=== PATIENT | female | born 1935 | race Caucasian/White ===

== ENCOUNTER → 2023-08-08 09:00 | Outpatient (REF) | payer MEDICARE, OTHER, SELFPAY ==
[2023-08-08 12:02] LABS: % Basophils 1.2 % (0-2); % Immature Granulocytes 0.6 % (0-0.5); % Lymphocytes 27.8 % (20.5-51.1); % Monocytes 7.5 % (1.7-9.3); % Neutrophils 57.9 % (42.2-75.2); Absolute Basophils 0.1 10^3/uL (0-0.2); Absolute Eosinophils 0.3 10^3/uL (0-0.7); Absolute Lymphocytes 1.5 10^3/uL (1.2-3.4); Absolute Monocytes 0.4 10^3/uL (0.1-0.6); Hematocrit 40.9 % (37.0-47.0); Hemoglobin 13.9 g/dL (12.0-16.0); Mean Corpuscular Hgb 32.8 pg (27.0-31.0); Mean Corpuscular Volume 96.5 fL (81.0-99.0); Mean Platelet Volume 10.5 fL (7.4-10.4); Nucleated Red Blood Cells % 0 %; Platelet Count 194 10^3/uL (130-400); Red Blood Cell Count 4.24 10^6/uL (4.20-5.40); Red Cell Dist. Width 12.5 % (11.5-14.5); White Blood Cell Count 5.2 10^3/uL (4.8-10.8)
[2023-08-08 12:19] LABS: ALT (SGPT) 18 U/L (0-35); AST (SGOT) 24 U/L (14-36); Albumin 3.6 g/dl (3.5-5.0); Alkaline Phosphatase 84 U/L (38-126); Blood Urea Nitrogen 22 mg/dl (7-17); Calcium 9.2 mg/dl (8.4-10.2); Carbon Dioxide 31 mmol/L (22-30); Chloride 101 mmol/L (98-107); Glucose 111 mg/dl (70-99); Potassium 4.3 mmol/L (3.5-5.1); Sodium 137 mmol/L (135-145); Total Bilirubin 0.9 mg/dl (0.2-1.3); eGFR > 60.00
[2023-08-08 12:31] LABS: Free T3 3.02 pg/ml (2.77-5.27); Free T4 1.54 ng/dl (0.78-2.19)
[2023-08-08 12:45] LABS: TSH 1.23 uIU/ml (0.47-4.68)
== END ==
LOC: HWLAB 09:00
PROVIDERS: ATTENDING PHYSICIAN Internal Medicine
DX: E03.9 Hypothyroidism, unspecified (principal); I10 Essential (primary) hypertension; E78.5 Hyperlipidemia, unspecified; R68.89 Other general symptoms and signs
CPT/HCPCS: 36415; 80053; 84439; 84443; 84481; 85025

== ENCOUNTER → 2024-02-06 12:37 | Outpatient (REF) | payer MEDICARE, OTHER, SELFPAY ==
[2024-02-06 15:57] LABS: % Basophils 0.8 % (0-2); % Eosinophils 4.1 % (0-6); % Immature Granulocytes 0.3 % (0-0.5); % Lymphocytes 20.1 % (20.5-51.1); % Monocytes 7.5 % (1.7-9.3); % Neutrophils 67.2 % (42.2-75.2); Absolute Basophils 0.1 10^3/uL (0-0.2); Absolute Eosinophils 0.3 10^3/uL (0-0.7); Absolute Lymphocytes 1.4 10^3/uL (1.2-3.4); Absolute Monocytes 0.5 10^3/uL (0.1-0.6); Absolute Neutrophils 4.8 10^3/uL (1.4-6.5); Hematocrit 39.8 % (37.0-47.0); Hemoglobin 13.8 g/dL (12.0-16.0); Mean Corp Hgb Conc. 34.7 g/dL (33.0-37.0); Mean Corpuscular Hgb 32.6 pg (27.0-31.0); Mean Corpuscular Volume 94.1 fL (81.0-99.0); Nucleated Red Blood Cells % 0 %; Platelet Count 205 10^3/uL (130-400); Red Blood Cell Count 4.23 10^6/uL (4.20-5.40); Red Cell Dist. Width 12.3 % (11.5-14.5); White Blood Cell Count 7.1 10^3/uL (4.8-10.8)
[2024-02-06 16:01] LABS: Blood Urea Nitrogen 16 mg/dl (7-17); Calcium 9.5 mg/dl (8.4-10.2); Carbon Dioxide 29 mmol/L (22-30); Chloride 101 mmol/L (98-107); Glucose 100 mg/dl (70-99); Potassium 4.4 mmol/L (3.5-5.1); Sodium 139 mmol/L (135-145); eGFR > 60.00
[2024-02-06 16:18] LABS: Free T3 2.83 pg/ml (2.77-5.27); Free T4 1.57 ng/dl (0.78-2.19)
[2024-02-06 16:32] LABS: TSH 0.83 uIU/ml (0.47-4.68)
[2024-02-06 17:08] LABS: Folate > 20.0 ng/ml (2.76-20); Vitamin B12 315 pg/ml (239-931)
[2024-02-07 09:27] LABS: Glycohemoglobin (HgbA1c) 5.2 % (4.0-5.6)
== END ==
LOC: HWLAB 12:37
PROVIDERS: ATTENDING PHYSICIAN Internal Medicine
DX: R23.3 Spontaneous ecchymoses (principal); E03.9 Hypothyroidism, unspecified; I10 Essential (primary) hypertension; R73.01 Impaired fasting glucose; R60.0 Localized edema; R68.89 Other general symptoms and signs; J44.9 Chronic obstructive pulmonary disease, unspecified; R41.3 Other amnesia
CPT/HCPCS: 36415; 80048; 82607; 82746; 83036; 84439; 84443; 84481; 85025

== ENCOUNTER → 2024-02-07 15:12 | Outpatient (REF) | payer MEDICARE, OTHER, SELFPAY | LOC: RAD 15:12 | PROVIDERS: ATTENDING PHYSICIAN Internal Medicine | DX: R23.3 Spontaneous ecchymoses (principal); R60.0 Localized edema | CPT/HCPCS: 93971 ==

== ENCOUNTER → 2024-04-22 16:09 | Outpatient (REF) | payer MEDICARE, OTHER, SELFPAY | LOC: HWRAD 16:09 | PROVIDERS: ATTENDING PHYSICIAN Internal Medicine | DX: R60.9 Edema, unspecified (principal); R20.0 Anesthesia of skin; E03.9 Hypothyroidism, unspecified | CPT/HCPCS: 71046; 72050 ==

== ENCOUNTER → 2024-04-23 08:39 | Outpatient (REF) | payer MEDICARE, OTHER, SELFPAY ==
[2024-04-23 10:03] LABS: % Basophils 0.8 % (0-2); % Immature Granulocytes 0.2 % (0-0.5); % Lymphocytes 27.2 % (20.5-51.1); % Neutrophils 59.8 % (42.2-75.2); Absolute Eosinophils 0.2 10^3/uL (0-0.7); Absolute Lymphocytes 1.4 10^3/uL (1.2-3.4); Absolute Monocytes 0.4 10^3/uL (0.1-0.6); Absolute Neutrophils 3.2 10^3/uL (1.4-6.5); Hematocrit 42.9 % (37.0-47.0); Hemoglobin 14.7 g/dL (12.0-16.0); Mean Corp Hgb Conc. 34.3 g/dL (33.0-37.0); Mean Corpuscular Hgb 33.5 pg (27.0-31.0); Mean Corpuscular Volume 97.7 fL (81.0-99.0); Mean Platelet Volume 11.3 fL (7.4-10.4); Nucleated Red Blood Cells % 0 %; Platelet Count 154 10^3/uL (130-400); Red Blood Cell Count 4.39 10^6/uL (4.20-5.40); Red Cell Dist. Width 12.7 % (11.5-14.5); White Blood Cell Count 5.3 10^3/uL (4.8-10.8)
[2024-04-23 10:27] LABS: ALT (SGPT) 47 U/L (0-35); AST (SGOT) 30 U/L (14-36); Albumin 3.8 g/dl (3.5-5.0); Alkaline Phosphatase 82 U/L (38-126); Blood Urea Nitrogen 15 mg/dl (7-17); Calcium 9.2 mg/dl (8.4-10.2); Carbon Dioxide 30 mmol/L (22-30); Chloride 101 mmol/L (98-107); Glucose 100 mg/dl (70-99); HDL Cholesterol 100 mg/dl; LDL Cholesterol, Calculated 71 mg/dl; Potassium 4.6 mmol/L (3.5-5.1); Sodium 139 mmol/L (135-145); Total Bilirubin 0.8 mg/dl (0.2-1.3); Total Cholesterol 183 mg/dl (50-199); Total Protein 6.3 g/dl (6.3-8.2); Triglyceride 64 mg/dl (10-149); Very Low Density Lipoprotein 12 mg/dl (0-30); eGFR > 60.00
[2024-04-23 10:52] LABS: Free T3 3.07 pg/ml (2.77-5.27); Free T4 1.36 ng/dl (0.78-2.19)
[2024-04-23 11:09] LABS: TSH 2.11 uIU/ml (0.47-4.68)
[2024-04-23 11:42] LABS: Folate > 20.0 ng/ml (2.76-20); Vitamin B12 400 pg/ml (239-931)
== END ==
LOC: HWLAB 08:39
PROVIDERS: ATTENDING PHYSICIAN Internal Medicine
DX: I10 Essential (primary) hypertension (principal); E78.5 Hyperlipidemia, unspecified; E03.9 Hypothyroidism, unspecified; R60.9 Edema, unspecified; R20.0 Anesthesia of skin
CPT/HCPCS: 36415; 80053; 80061; 82607; 82746; 84439; 84443; 84481; 85025

== ENCOUNTER → 2024-05-07 13:30 | Outpatient (REF) | payer MEDICARE, OTHER, SELFPAY | LOC: HWRCS 13:30 | PROVIDERS: ATTENDING PHYSICIAN Internal Medicine | DX: I10 Essential (primary) hypertension (principal); R60.9 Edema, unspecified; R20.0 Anesthesia of skin | CPT/HCPCS: 93306 ==

== ENCOUNTER 2024-07-01 15:14 | Inpatient (IN) | payer MEDICARE, OTHER, SELFPAY ==
[2024-07-01] VITALS (22 sets, daily range): BP systolic 71–161; BP diastolic 55–96; BMI 23.3
[2024-07-01 10:37] LABS: % Basophils 0.8 % (0-2); % Eosinophils 2.3 % (0-6); % Immature Granulocytes 0.5 % (0-0.5); % Lymphocytes 14.2 % (20.5-51.1); % Monocytes 5.8 % (1.7-9.3); % Neutrophils 76.4 % (42.2-75.2); Absolute Basophils 0.1 10^3/uL (0-0.2); Absolute Eosinophils 0.2 10^3/uL (0-0.7); Absolute Lymphocytes 1.1 10^3/uL (1.2-3.4); Absolute Monocytes 0.5 10^3/uL (0.1-0.6); Absolute Neutrophils 6.1 10^3/uL (1.4-6.5); Hematocrit 40.3 % (37.0-47.0); Hemoglobin 13.8 g/dL (12.0-16.0); Mean Corp Hgb Conc. 34.2 g/dL (33.0-37.0); Mean Corpuscular Hgb 32.6 pg (27.0-31.0); Mean Corpuscular Volume 95.3 fL (81.0-99.0); Mean Platelet Volume 10.3 fL (7.4-10.4); Nucleated Red Blood Cells % 0 %; Platelet Count 219 10^3/uL (130-400); Red Blood Cell Count 4.23 10^6/uL (4.20-5.40); White Blood Cell Count 7.9 10^3/uL (4.8-10.8)
--- NOTE | 2024-07-01 10:47 | ED.GENMED ---
History of Present Illness
General
Chief Complaint: Rectal Bleeding
Time Seen by Provider: 07/01/24 10:41
History of Present Illness
History of Present Illness:
Patient is a 89-year-old woman with history of prior GI bleeding secondary to diverticulosis presenting to the emergency department with GI bleed. Patient states that at 5 AM this morning she woke up with diarrhea and bright red bleeding with
clots. She does note that she is been generally weak. She has not been lightheaded dizzy. She has not passed out. She is not on a blood thinner. She does state that she has had 7 episodes of this. No recent travel. No antibiotics. Her last
colonoscopy was 4 years ago. Per chart review it appears the patient was admitted in November 2021 for lower GI bleeding likely from diverticular bleed. At that time they monitor her hemoglobin which was stable and she was discharged with outpatient
follow-up.
Past History
Past History
ED Past Medical History: COPD and Hypothyroidism (half of thyroid removed)
ED Past Surgical History: Cholecystectomy, Gynecological and Other (Partial thyroidectomy)
Patient has exhibited threatening behavior?: No
Social History
Tobacco: Former smoker
Personal:
Living: with family
Employment: Employed
Family History
Family History: Negative Early CAD
Phy Exam
Physical Exam
Physical Exam:
GENERAL: in no acute distress
HEENT: normocephalic, extraocular movements intact, moist oral mucosa
NECK: normal inspection
RESPIRATORY: no respiratory distress, clear to auscultation bilaterally
CARDIOVASCULAR: regular rate and rhythm
ABDOMEN/: soft, non-distended, non-tender to palpation, no rebound or guarding
EXTREMITIES: non-tender, no edema/swelling
NEUROLOGIC: awake and alert, moves all extremities
SKIN: warm
Course
Orders/Labs/Results
Orders:
Orders
07/01/24 10:27
Type+Screen Urgent
Complete Blood Count/With Diff Urgent
Comprehensive Metabolic Panel Urgent
PTT Urgent
Prothrombin Time Urgent
07/01/24 10:57
CT Abd/pelvis Angio W/wo Iv Urgent
Comment:
Reason For Exam: lower GI bleeding, clots, weak
07/01/24 11:01
Stool Culture Urgent
LIZ Source: Feces/Stool
Specimen Description:
Date Specimen was Collected: 07/01/24
Time Specimen was Collected: 14:38
07/01/24 14:32
H&H Urgent
Abnormal Lab Results
07/01/24
10:27
MCH 32.6 H pg
(27.0-31.0)
Absolute Lymphs (auto) 1.1 L 10^3/uL
(1.2-3.4)
Neutrophils % 76.4 H %
(42.2-75.2)
Lymphocytes % 14.2 L %
(20.5-51.1)
Glucose 153 H mg/dl
(70-99)
07/01/24 10:27
Vital Signs
Initial and Last Documented VS:
Initial Vital Signs
Temp Pulse Resp BP Pulse Ox
97.5 F 68 18 141/77 98
07/01/24 10:15 07/01/24 10:15 07/01/24 10:15 07/01/24 10:15 07/01/24 10:15
Last Documented Vital Signs
Temp Pulse Resp BP Pulse Ox
97.5 F 73 13 132/65 94
07/01/24 10:15 07/01/24 14:30 07/01/24 14:30 07/01/24 14:00 07/01/24 14:00
MDM/Problems Addressed
Differential Diagnosis Includes:
89-year-old woman presenting to the emergency department with concern for GI bleeding. Concern for lower GI bleed given that is bright red with clots. Given the diarrhea could be diverticulitis versus AVM or polyp. Consider mesenteric ischemia
though less likely. Will check blood work. Given the amount of bleeding and change in blood pressure will obtain CTA. Will also check stool cultures given the diarrhea. Patient will need admission.
*Critical Care Note
Total Time (30-74mins, 75-104mins- exclusive of procedures): 35
comment:
Critical care statement: A total of 35 minutes of critical care time was provided for this patient. This includes management of unstable vital signs, evaluation of the patient at bedside, reviewing the patient's pertinent medical records, ordering
and reviewing studies, arranging urgent treatment with development of a management plan, evaluating patient's response to treatment, frequent reassessment, and discussion with consultants. This time was separate from time utilized to perform the
aforementioned documented procedures.
Update Note
Update Note:
Hemoglobin is stable.
On reevaluation patient is resting comfortably. She did go to the bathroom and did have some bleeding still.
I did receive a critical from radiology. Patient does have active GI bleed. Discussed with hospitalist as well as GI who recommended interventional radiology consult. Discussed with interventional radiology who is aware. Will admit to the
hospitalist service pending plan from IR
ED Attending Note
-
Portions of this chart may have been created with voice recognition software.� Occasional wrong word or��sound alike� substitutions may have occurred due to the inherent limitations of voice recognition software.
Discharge Plan
Departure
Patient Disposition: Admit
Date of Disposition: 07/01/24
Time of Disposition: 14:51
Presentation/result/management discussed w/ accepting MD/DO: Hospitalist
Discharge Problem:
Acute GI bleeding
Prescriptions:
No Action
levothyroxine [Synthroid] 88 MCG tablet
88 mcg PO DAILY
ascorbic acid (vitamin C) [Vitamin C] 500 MG tablet
1,000 mg PO DAILY
trazodone 50 mg Tablet
50 mg PO HS
therapeutic multivitamin Tablet
1 tab PO DAILY
amlodipine [Norvasc] 2.5 mg Tablet
2.5 mg PO DAILY
propranolol 20 mg Tablet
20 mg PO DAILY
cholecalciferol (vitamin D3) [Vitamin D3] 25 mcg (1,000 unit) Capsule
50 mcg PO DAILY
omega 5-lgr-vja-fish oil [Fish Oil] 300-1,000 mg Capsule
1 cap PO DAILY
ipratropium bromide 42 mcg (0.06 %) Stanton,Non-Aerosol
1 spray INTRANASAL TID PRN (Reason: congestion)
albuterol sulfate 90 mcg/actuation Hfa Aerosol Inhaler
90 mcg INHALATION DAILY PRN (Reason: sob)
Rx Instructions:
2 puffs
polyethylene glycol 3350 [Miralax] 17 gram/dose Powder
4 g PO DAILY PRN (Reason: constipation)
propranolol 20 mg Tablet
10 mg PO QPM
Metamucil 3.4 gram/5.4 gram Powder
1 tbsp PO DAILY
Trelegy Ellipta 200-62.5-25 mcg Blister With Device
1 inh INHALATION DAILY
Referrals:
Fanta Beltran MD [Family Provider] -
Interventions
Interventions:
*Risk Screen - Suicide Last Done: 07/01/24 11:15
*General Assessment Last Done: 07/01/24 11:15
*Neglect/Abuse Screening Last Done: 07/01/24 11:15
ED- Fall Risk Assessment Last Done: 07/01/24 11:15
*ED COVID-19 Vaccine History Last Done: 07/01/24 11:15
DQ-Twqhlu-Neowjvkftl Assessment Last Done: 07/01/24 11:15
ED- Cardiac Assessment Last Done: 07/01/24 11:15
ED- Pulmonary Assessment Last Done: 07/01/24 11:15
Discharge Date and Time
Print Language: ESTONIAN
[2024-07-01 10:54] LABS: INR 0.96; PT 13.1 Sec (11.4-14.6)
[2024-07-01 10:55] LABS: APTT 30.3 Sec (23.4-35.0)
[2024-07-01 10:59] LABS: ALT (SGPT) 20 U/L (0-35); AST (SGOT) 23 U/L (14-36); Albumin 3.8 g/dl (3.5-5.0); Alkaline Phosphatase 89 U/L (38-126); Blood Urea Nitrogen 15 mg/dl (7-17); Calcium 8.4 mg/dl (8.4-10.2); Carbon Dioxide 28 mmol/L (22-30); Chloride 102 mmol/L (98-107); Glucose 153 mg/dl (70-99); Potassium 4.4 mmol/L (3.5-5.1); Sodium 136 mmol/L (135-145); Total Bilirubin 0.7 mg/dl (0.2-1.3); Total Protein 6.4 g/dl (6.3-8.2); eGFR > 60.00
--- NOTE | 2024-07-01 10:59 | EDRN ---
Dr. Lauren in to see pt.
--- NOTE | 2024-07-01 14:35 | EDRN ---
Wilmer Berry PA in to see pt at this time.
--- NOTE | 2024-07-01 15:12 | HPS.HSE ---
Addendum entered and electronically signed by Dorinda Merino DO 07/01/24 16:23:
The patient is seen and examined in the ED. I have discussed the patient with YANG Mcclendon, ED physician, GI physician, and IR physician
She has had 7 episodes of bloody diarrhea today, and is having BRB per rectum in ED , no abdominal pain, no etoh, no NSAIDS, she has prior history of diverticular bleed
CTA a/p showing active bleeding in the distal descending colon
VSS, AF at this time
Abd soft, nt/nd
CV RRR, no m/r/g
Lungs CTA b/l
#Acute Lower GI bleed,concern for acute diverticular bleed
-she is going to lab with IR for procedure (from ED)
-[facility] admission, IVF, 2 large bore IVs, blood consent
-serial monitoring of H & H
-GI cx/IR cx
-agree with POC per below and as per clinical course following IR procedure
DNR
Original Note:
Family Physician
-
Family Physician: Fanta Beltran
Chief Complaint
-
Rectal Bleeding
History of Present Illness
Patient is an 89-year-old female past medical history of COPD, hypertension, migraine headaches and prior diverticular bleed who presents with rectal bleeding. Patient reports she started with rectal bleeding around 5 AM this morning. She reports
about 7 episodes at home prior to coming to the emergency department. She describe them as a large amount of blood with some clots. She states her last episode of rectal bleeding was just before my evaluation. She denies abdominal pain.
Medical History
Past Medical History
Past Medical History: Reports Other
Additional Past Medical History:
COPD
Essential Hypertension
Hypothyroidism
Migraine Headaches
Insomnia
Diverticular Disease with prior diverticular bleed
Past Surgical History: Reports Other
Additional Past Surgical History:
Partial Thyroidectomy
Open Cholecystectomy
OLIVIA/BSO
Left Inguinal Hernia Repair with Mesh
Right Total Knee Replacement
Social History
Tobacco: Smoker (Quit over 30 years ago)
Alcohol: Daily (One glass of wine nightly)
Personal:
Living: With Family
Family History
Family History: Not pertinent
Allergies / Home Medications
Allergies reflects when Allergies were last updated in [facility].
Home Medications with original date entered in [facility]
Allergy/Medication List:
Allergies
Allergy/AdvReac Type Severity Reaction Status Date / Time
Shellfish *RETIRED-02/14/12 Allergy Nausea / Verified 07/01/24 10:15
[Shellfish] Vomiting;headache
Sulfa (Sulfonamide Allergy Nausea / Verified 07/01/24 10:15
Antibiotics) Vomiting/heADache
Home Medications
ascorbic acid (vitamin C) 500 mg tablet (Vitamin C) 1,000 mg PO DAILY Supplement 11/03/10
levothyroxine 88 mcg tablet (Synthroid) 88 mcg PO DAILY Thyroid 11/03/10
amlodipine 2.5 mg tablet (Norvasc) 2.5 mg PO DAILY Blood pressure 12/20/21
cholecalciferol (vitamin D3) 25 mcg (1,000 unit) capsule (Vitamin D3) 50 mcg PO DAILY Supplement 12/20/21
omega 4-cph-heb-fish oil 300 mg-1,000 mg capsule (Fish Oil) 1 cap PO DAILY Supplement 12/20/21
propranolol 20 mg tablet 20 mg PO DAILY Blood pressure 12/20/21
therapeutic multivitamin 1 tab PO DAILY Supplement 12/20/21
trazodone 50 mg tablet 50 mg PO HS 12/20/21
ipratropium bromide 42 mcg (0.06 %) nasal spray 1 spray intranasal TID PRN congestion 02/28/22
albuterol sulfate 90 mcg/actuation aerosol inhaler 90 mcg inhalation DAILY PRN sob 03/03/22
fluticasone fur. 200 mcg-umeclid 62.5 mcg-vilant 25 mcg inhalat.powder (Trelegy Ellipta) 1 inh inhalation DAILY 07/01/24
polyethylene glycol 3350 17 gram/dose oral powder (Miralax) 4 g PO DAILY PRN constipation 07/01/24
propranolol 20 mg tablet 10 mg PO QPM 07/01/24
psyllium husk 3.4 gram/5.4 gram oral powder (Metamucil) 1 tbsp PO DAILY 07/01/24
Review of Systems
-
A 12 point ROS was completed and negative except as noted: Yes
Constitutional: Denies Fever or Chills
Respiratory: Denies Cough or Trouble Breathing
Cardiac: Denies Chest Pain or Palpitations
Abdomen/GI: Reports Diarrhea; Denies Abdominal Pain, Nausea or Vomiting
Physical Exam
Vital Signs
Vital Signs
Temp Pulse Resp BP Pulse Ox
97.5 F 72 20 149/66 97
07/01/24 10:15 07/01/24 15:00 07/01/24 15:00 07/01/24 15:00 07/01/24 15:00
Physical Exam
General: Comfortable and Conversant
HEENT: Anicteric and Moist mucous membranes
Respiratory: Clear and Non Labored Respirations
Cardiac: S1/S2 and Regular Rhythm
GI: Soft and Non Tender
Rectal: Other (Red blood)
Musculoskeletal: No Clubbing, No Cyanosis and No Edema
Skin: Warm and Dry
Neuro: Awake, Alert, Oriented and Nonfocal/grossly intact
Psych: Calm
Laboratory Results
-
07/01/24 10:27
Laboratory Results
PT 13.1 Sec (11.4-14.6) 07/01/24 10:27
INR 0.96 07/01/24 10:27
APTT 30.3 Sec (23.4-35.0) 07/01/24 10:27
Total Bilirubin 0.7 mg/dl (0.2-1.3) 07/01/24 10:27
AST 23 U/L (14-36) 07/01/24 10:27
ALT 20 U/L (0-35) 07/01/24 10:27
Alkaline Phosphatase 89 U/L (38-126) 07/01/24 10:27
Data Reviewed
-
CT Scan: Report Reviewed by me
Lab Data: Labs Reviewed by me
Old Records: Reviewed
Impression/Plan
-
Lower GI BLeed, likely diverticular in nature
-CT scan positive for active bleeding is descending colon
-Consult IR for possible embolization
-Consult GI
-Continue NPO/IVFs
-Monitor serial Hgb
-Blood consent obtained and scanned into chart
Essential Hypertension
-Hold amlodipine in setting of active bleed
COPD, no acute exacerbation
-Continue Trelegy
Hypothyroidism
-Continue levothyroxine
Migraine Headaches
-Continue propranolol for prophylaxis
Insomnia
-Continue trazodone
DVT proph: SCDs
Code Status: DNR
--- NOTE | 2024-07-01 15:15 | EDRN ---
[facility] was consulted for embolization of area of bleed in colon and Pt went to [facility] at this time for that.
[2024-07-01 15:22] LABS: Hematocrit 36.5 % (37.0-47.0)
--- NOTE | 2024-07-01 17:13 | W.PN.[facility].PR ---
Procedure Note
-
Post inferior and superior mesenteric arteriography. No active gastrointestinal hemorrhage identified. 5 Fr Mynx closure device deployed at right CF arteriotomy site. No immediate complications.
--- NOTE | 2024-07-01 17:30 | EDRN ---
Pt just returned from [facility] at this time. Pt had no embolization as no bleeding noted to embolize, Pt was accessed through R groin (Bandaid CDI), Pt received 1 of versed and 50 of Fentanyl
--- NOTE | 2024-07-01 17:31 | EDRN ---
Rubi Blair ASSET LIABILITY ANALYST w/ GI in room w/ pt. Pt has not had BM since this am and no bloody rectal drainage but one tiny clot.
--- NOTE | 2024-07-01 17:38 | CON.GI ---
Addendum entered and electronically signed by Evelyn Piedra DO 07/01/24 19:24:
Patient seen and examined independently of LOLA. I agree with her note with my additions below.
Kadi is an 89-year-old female with history of COPD, partial thyroidectomy, spigelian hernia repair, prior diverticular bleed in 2021 who comes in with multiple episodes of painless hematochezia who is otherwise hemodynamically stable. Patient
went for CT angio showing a distal descending bleed who then went to IR and had a negative angiogram. Patient states no other GI symptoms and are baseline constipation is well-controlled with fiber MiraLAX and magnesium citrate tablets.
In the emergency room she is hemodynamically stable with a pulse of 71 on propranolol, normotensive, hemoglobin 13 x 2.
# Descending diverticular bleed based on positive CT angio
--Patient is hemodynamically stable with no further bleeding
--Negative IR angiogram
--Clear liquids
--Monitor hemoglobin and clinical status, 2 large bore IVs
Original Note:
Consultation
-
Date/Time Consultation Requested: 07/01/24 1430
Date/Time Consultation Performed: 07/01/24 1730
Requesting Provider: Gene Lauren MD
Performing Provider: LOLA Velasco, Evelyn Piedra DO
Reason for Consultation: rectal bleeding
Medical History
Chief Complaint / HPI
Chief Complaint: Rectal bleeding
History of Present Illness:
Pt is a 89yo presents with hx COPD, diverticulosis, hypothyroidism , Partial thyroidectomy, Spigelian hernia repair Dr. Floyd 2021, prior diverticular bleed in 2021, Partial thyroidectomy, Spigelian hernia repair Dr. Floyd 2021 with onset of
multiple episodes of bright red blood per rectum. After admission CTA + with bleeding in distal descending colon then neg IR angio. In review with patient prior bleeding in 2021 and hx constipation that has been well controlled with fiber,
miralax and mag citrate tablet.
Pt otherwise denies dysphagia, GERD, nausea, vomiting, abdominal pain, diarrhea, or black stools. Her last colonoscopy was 05/2019 with 2-- 4 mm polyps splenic flexure, transverse and diverticulosis. BX TA and hyperplastic.
Past Medical History
Past Medical History: COPD, GERD, Hypothyroidism and Other (Constipation, colon polyps, diverticulosis, prior diverticular bleed 2021, TA polyps)
Past Surgical History: Cholecystectomy, Gynecological (Hysterectomy) and Other (Partial thyroidectomy, Spigelian hernia repair Dr. Floyd 2021 )
Social History
Tobacco: Former Smoker
Alcohol: Daily
Drug: None
Personal:
Living: With Family
Employment: Retired
Family History
Family History: Other (mother with stomach CA)
Allergies / Home Medications
Allergy/AdvReac Type Severity Reaction Status Date / Time
Shellfish *RETIRED-02/14/12 Allergy Nausea / Verified 07/01/24 10:15
[Shellfish] Vomiting;headache
Sulfa (Sulfonamide Allergy Nausea / Verified 07/01/24 10:15
Antibiotics) Vomiting/heADache
�Medication �Instructions �Recorded
ascorbic acid (vitamin C) 500 mg 1,000 mg PO DAILY Supplement 11/03/10
tablet (Vitamin C)
levothyroxine 88 mcg tablet 88 mcg PO DAILY Thyroid 11/03/10
(Synthroid)
amlodipine 2.5 mg tablet (Norvasc) 2.5 mg PO DAILY Blood pressure 12/20/21
cholecalciferol (vitamin D3) 25 50 mcg PO DAILY Supplement 12/20/21
mcg (1,000 unit) capsule (Vitamin
D3)
omega 9-zkc-mmu-fish oil 300 1 cap PO DAILY Supplement 12/20/21
mg-1,000 mg capsule (Fish Oil)
propranolol 20 mg tablet 20 mg PO DAILY Blood pressure 12/20/21
therapeutic multivitamin 1 tab PO DAILY Supplement 12/20/21
trazodone 50 mg tablet 50 mg PO HS 12/20/21
ipratropium bromide 42 mcg (0.06 1 spray intranasal TID PRN 10/03/22
%) nasal spray congestion
albuterol sulfate 90 mcg/actuation 90 mcg inhalation DAILY PRN sob 03/03/22
aerosol inhaler
fluticasone fur. 200 mcg-umeclid 1 inh inhalation DAILY 07/01/24
62.5 mcg-vilant 25 mcg
inhalat.powder (Trelegy Ellipta)
polyethylene glycol 3350 17 4 g PO DAILY PRN constipation 07/01/24
gram/dose oral powder (Miralax)
propranolol 20 mg tablet 10 mg PO QPM 07/01/24
psyllium husk 3.4 gram/5.4 gram 1 tbsp PO DAILY 07/01/24
oral powder (Metamucil)
Review of Systems
-
History Source: Patient
Constitutional: Reports No Symptoms
EENT: Reports No Symptoms
Respiratory: Reports No Symptoms
Cardiac: Reports No Symptoms
Abdomen/GI: Reports Constipated (chronic but stable with laxative use ) and Bloody Stools
: Reports No Symptoms
Musculoskeletal: Reports No Symptoms
Skin: Reports No Symptoms
Neurological: Reports Dizzy
Endocrine: Reports No Symptoms
Hematologic/Lymphatic: Reports Bleeding
Vital Signs
Temp Pulse Resp BP Pulse Ox
98.2 F 65 17 138/59 94
07/01/24 17:15 07/01/24 17:30 07/01/24 17:30 07/01/24 17:30 07/01/24 17:30
Physical Exam
Exam
General: Well Developed, Well Nourished and No Apparent Distress
HEENT: Normocephalic and Anicteric
Respiratory: Clear
Cardiac: Regular Rhythm
GI: Soft, Non Tender and Non Distended
Genito-urinary: No Costovertebral Tender
Musculoskeletal: No Clubbing and No Cyanosis
Skin: Warm and Dry
Neuro: Awake, Alert and AO x 3
Psych: Calm
Results
WBC 7.9 10^3/uL (4.8-10.8) 07/01/24 10:27
Hgb 13.0 g/dL (12.0-16.0) 07/01/24 15:09
Hct 36.5 % (37.0-47.0) L 07/01/24 15:09
MCV 95.3 fL (81.0-99.0) 07/01/24 10:27
Plt Count 219 10^3/uL (130-400) 07/01/24 10:27
Absolute Neuts (auto) 6.1 10^3/uL (1.4-6.5) 07/01/24 10:
PT 13.1 Sec (11.4-14.6) 07/01/24 10:
INR 0.96 07/01/24 10:
APTT 30.3 Sec (23.4-35.0) 07/01/24 10:27
Sodium 136 mmol/L (135-145) 07/01/24 10:27
Potassium 4.4 mmol/L (3.5-5.1) 07/01/24 10:
Chloride 102 mmol/L (98-107) 07/01/24 10:27
Carbon Dioxide 28 mmol/L (22-30) 07/01/24 10:27
BUN 15 mg/dl (7-17) 07/01/24 10:
Creatinine 0.6 mg/dL (0.6-1.0) 07/01/24 10:27
Calcium 8.4 mg/dl (8.4-10.2) 07/01/24 10:27
Total Bilirubin 0.7 mg/dl (0.2-1.3) 07/01/24 10:
AST 23 U/L (14-36) 07/01/24 10:
ALT 20 U/L (0-35) 07/01/24 10:27
Alkaline Phosphatase 89 U/L (38-126) 07/01/24 10:
Diagnostic Image Results:
07/01/24 CT Abd/pelvis Angio W/wo Iv
Examination is positive for GI bleeding involving the distal descending colon.
See above narrative for additional findings.
Prior GI Procedures:
Colonoscopy: 05/2019 with 2-- 4 mm polyps splenic flexure, transverse and diverticulosis. BX TA and hyperplastic.
Assessment / Plan
-
Pt is a 89yo presents with hx COPD, diverticulosis, hypothyroidism, Partial thyroidectomy, Spigelian hernia repair Dr. Floyd 2021, prior diverticular bleed in 2021, Partial thyroidectomy, Spigelian hernia repair Dr. Floyd 2021 with onset of
multiple episodes of bright red blood per rectum. After admission CTA + with bleeding in distal descending colon then neg IR angio. In review with patient prior bleeding in 2021 and hx constipation that has been well controlled with fiber,
Miralax and mag citrate tablet.
-rectal bleeding with concern for diverticular bleed
-CTA + bleeding distal descending
-hx diverticular bleed 2021
-constipation with laxative use
other med problems:
-colon polyp
-COPD
-diverticulosis
-hypothyroidism/partial thyroidectomy
-Spigelian hernia repair Dr. Floyd 2021
PLAN:
Etiology of bleeding related to diverticular source vs other
s/p CTA + distal descending colon bleed then neg angio
trend stool record and hbg
ok for sips clears
if recurrent bleeding consider colonoscopy vs repeat angio
when resolved continued laxative regiment to prevent constipation
-
-
Thank you for consultation and allowing me to participate in the patient's care. Please call the lieutenant colonel GI physician during the after hours with any questions or concerns.
--- NOTE | 2024-07-01 17:57 | EDRN ---
SBP low and rechecked at this time. SBP now 119.
--- NOTE | 2024-07-01 18:29 | EDRN ---
Admission orders processed at this time.
--- NOTE | 2024-07-01 18:33 | EDRN ---
Pt asking to drink or ice chips but NPO and informed of this. Pt administered oral swab in cup of water to wet her mouth.
[2024-07-01] MEDS: SYMBICORT 160/4.5 MCG INHALER INH (19:32)
[2024-07-01] MEDS: INDERAL 10 MG PO (19:55)
[2024-07-01] MEDS: NSS 1000 IV (20:00)
[2024-07-01 20:58] LABS: Hematocrit 35.7 % (37.0-47.0); Hemoglobin 12.2 g/dL (12.0-16.0)
[2024-07-01] MEDS: DESYREL 50 MG PO (23:08)
[2024-07-02] VITALS (14 sets, daily range): BP systolic 103–141; BP diastolic 39–76
[2024-07-02 02:46] LABS: Hematocrit 33.1 % (37.0-47.0); Hemoglobin 11.5 g/dL (12.0-16.0)
[2024-07-02] MEDS: SYNTHROID 88 MCG PO (06:40)
--- NOTE | 2024-07-02 06:55 | W.PN.GI.CBS2 ---
Today's Communication / Plan
-
Please see assessment and plan for details.
Assessment / Plan
-
1. GI bleed with positive CT scan : In the distal descending, likely diverticular, with negative angiogram in IR. She has been stable overnight, with no significant bowel movements and has been hemodynamically stable. At this point we will
continue clear liquids, continue observation today. If is remaining stable then likely advance diet and probable DC tomorrow. If significant recurrent bleeding then would repeat angiogram in IR.
Subjective
Subjective
Date of Service: July 02, 2024
Patient doing okay, no bowel movements overnight, no abdominal pain, nausea or vomiting. No chest pain or shortness of breath.
Objective
Data Reviewed
Laboratory Data:
Laboratory Results
07/01/24 10:27
Laboratory Results
PT 13.1 Sec (11.4-14.6) 07/01/24 10:27
INR 0.96 07/01/24 10:27
APTT 30.3 Sec (23.4-35.0) 07/01/24 10:27
Total Bilirubin 0.7 mg/dl (0.2-1.3) 07/01/24 10:27
AST 23 U/L (14-36) 07/01/24 10:27
ALT 20 U/L (0-35) 07/01/24 10:27
Alkaline Phosphatase 89 U/L (38-126) 07/01/24 10:27
Vital Signs and I&O:
Vital Signs
Temp Pulse Resp BP Pulse Ox
97.6 F 65 17 103/42 97
07/02/24 06:38 07/02/24 01:15 07/02/24 01:15 07/02/24 01:00 07/01/24 20:00
I&O
06/30/24 07/01/24 07/02/24
06:59 06:59 06:59
Intake Total 75 / 75
Balance
Physical Exam
Physical Exam
General: NAD
Abdomen: normal bowel sounds, soft, no tenderness, no masses or bruits, no ascites
[2024-07-02] MEDS: SYMBICORT 160/4.5 MCG INHALER INH ×2 (07:09→20:24)
[2024-07-02] MEDS: SPIRIVA RESPIMAT 2.5 MCG INH (07:09)
[2024-07-02 07:21] LABS: Hematocrit 32.5 % (37.0-47.0); Hemoglobin 11.1 g/dL (12.0-16.0); Mean Corp Hgb Conc. 34.2 g/dL (33.0-37.0); Mean Corpuscular Hgb 32.7 pg (27.0-31.0); Mean Corpuscular Volume 95.9 fL (81.0-99.0); Mean Platelet Volume 10.2 fL (7.4-10.4); Platelet Count 174 10^3/uL (130-400); Red Blood Cell Count 3.39 10^6/uL (4.20-5.40); Red Cell Dist. Width 12.2 % (11.5-14.5); White Blood Cell Count 6.8 10^3/uL (4.8-10.8)
[2024-07-02] MEDS: INDERAL 20 MG PO (08:26)
[2024-07-02] MEDS: NSS 1000 IV (09:30)
--- NOTE | 2024-07-02 10:28 | W.PN.HOSP.TC ---
Today's Communication/Plan
-
see outlined plan below
Assessment / Plan
Assessment / Plan
Assessment:
Acute lower GI bleed, with acute blood loss anemia
- likely diverticular in origin
- s/p CTA with + GI bleed in descending colon. s/p negative IR angiogram
- GI following
- clears
- monitor Hb and for clinical bleeding
- type/screen/consented
Essential Hypertension
- Hold amlodipine in setting of active bleed; resume in 24 hours
COPD, no acute exacerbation
- continue Trelegy
Hypothyroidism
- continue levothyroxine
Migraine Headaches
- continue propranolol for prophylaxis
Insomnia
- continue trazodone
DVT proph: SCDs due to GI bleed
Code Status: DNR/DNI confirmed with patient
Anticipated Discharge: Within 24 hours
Subjective/Interval History
-
Date of Service: July 02, 2024
denies any new complaints at present
no further bleeding
Hb is 11.1 most recently
Objective Data
-
Labs:
Laboratory Results
07/02/24 07/02/24 07/02/24
02:39 06:36 08:30
WBC 6.8
Hgb 11.5 L 11.1 L Pending
Hct 33.1 L 32.5 L Pending
Plt Count 174 D
Vital Signs:
Vital Signs
Temp Pulse Resp BP Pulse Ox
97.6 F 61 20 138/49 96
07/02/24 06:38 07/02/24 09:31 07/02/24 09:31 07/02/24 09:31 07/02/24 09:31
I&O
07/01/24 07/02/24 07/03/24
06:59 06:59 06:59
Intake Total 75 / 75
Balance 75 /
Physical Exam
-
General: No Apparent Distress
HEENT: Normocephalic and Atraumatic
Respiratory: Negative Wheezes
Cardiac: Regular Rhythm and S1/S2
GI: Soft and Nontender
Genito-urinary: No Costovertebral Tender
Neuro: AO x 3
Hematologic / Lymphatic: No Lymphadenopathy
Psych: Calm
Data Reviewed
-
Total Time Spent with Patient (in minutes): 41
Labs: Labs Reviewed by me
[2024-07-02 12:59] LABS: Hemoglobin 11.3 g/dL (12.0-16.0)
--- NOTE | 2024-07-02 14:50 | TRANSFER ---
Verbal report provided to Edinson Malone. pt awaiting to to be transferred to floor.
[2024-07-02] MEDS: INDERAL 10 MG PO (20:05)
[2024-07-02] MEDS: DESYREL 50 MG PO (21:41)
--- NOTE | 2024-07-03 06:05 | W.PN.GI.CBS2 ---
Today's Communication / Plan
-
Please see assessment and plan for details.
Assessment / Plan
-
1. GI bleed with positive CT scan : In the distal descending, likely diverticular, with negative angiogram in IR. She has been stable for more than 24 hours, with no significant bowel movements and has been hemodynamically stable, as tolerated
diet. At this point will await morning hemoglobin, though if stable is okay to DC from a GI standpoint.
Subjective
Subjective
Date of Service: July 03, 2024
Patient feeling well overnight, no bowel movements, tolerated diet without difficulty, no abdominal pain, fever or chills.
Objective
Data Reviewed
Laboratory Data:
Laboratory Results
PT 13.1 Sec (11.4-14.6) 07/01/24 10:27
INR 0.96 07/01/24 10:27
APTT 30.3 Sec (23.4-35.0) 07/01/24 10:27
Total Bilirubin 0.7 mg/dl (0.2-1.3) 07/01/24 10:27
AST 23 U/L (14-36) 07/01/24 10:27
ALT 20 U/L (0-35) 07/01/24 10:27
Alkaline Phosphatase 89 U/L (38-126) 07/01/24 10:27
Vital Signs and I&O:
Vital Signs
Temp Pulse Resp BP Pulse Ox
97.9 F 74 16 118/52 95
07/02/24 22:46 07/02/24 22:46 07/02/24 22:46 07/02/24 22:46 07/02/24 22:46
I&O
07/01/24 07/02/24 07/03/24
06:59 06:59 06:59
Intake Total 75 / 75 400 / 400
Balance 75 / 75 400 / 400
Physical Exam
Physical Exam
General: NAD
Abdomen: normal bowel sounds, soft, no tenderness, no masses or bruits, no ascites
[2024-07-03] MEDS: SYNTHROID 88 MCG PO (06:14)
[2024-07-03 07:32] VITALS: BP 133/66
[2024-07-03] MEDS: INDERAL 20 MG PO (07:33)
[2024-07-03] MEDS: SYMBICORT 160/4.5 MCG INHALER INH ×2 (08:29→20:24)
[2024-07-03] MEDS: SPIRIVA RESPIMAT 2.5 MCG INH (08:29)
--- NOTE | 2024-07-03 09:19 | PTCARENOTE ---
pt aaox3. states no pain or sob. this morning had a mix stool formed with gelatinous burgundy. no dizziness noted by pt.
[2024-07-03 10:38] LABS: Hematocrit 36.1 % (37.0-47.0); Hemoglobin 12.1 g/dL (12.0-16.0); Mean Corp Hgb Conc. 33.5 g/dL (33.0-37.0); Mean Corpuscular Hgb 32.6 pg (27.0-31.0); Mean Corpuscular Volume 97.3 fL (81.0-99.0); Mean Platelet Volume 10.4 fL (7.4-10.4); Platelet Count 202 10^3/uL (130-400); Red Blood Cell Count 3.71 10^6/uL (4.20-5.40); Red Cell Dist. Width 12.2 % (11.5-14.5); White Blood Cell Count 7.6 10^3/uL (4.8-10.8)
[2024-07-03 11:22] LABS: Blood Urea Nitrogen 11 mg/dl (7-17); Calcium 8.8 mg/dl (8.4-10.2); Carbon Dioxide 26 mmol/L (22-30); Chloride 102 mmol/L (98-107); Estimated Creatinine Clearance 41 ml/min; Glucose 151 mg/dl (70-99); Sodium 137 mmol/L (135-145); eGFR > 60.00
[2024-07-03 11:47] LABS: Potassium 3.9 mmol/L (3.5-5.1)
--- NOTE | 2024-07-03 12:41 | CM ---
Met with pt at bedside
Pt reports she lives with her in a split level home 1 step to enter, 7 steps to bed/bath
Independent at baseline, drives
DME - none
SNF/HH - no past hx
Has ride at discharge
PCP - Fanta Beltran
Pharm - [facility]
Plan - anticipate home no needs when medically ready
--- NOTE | 2024-07-03 14:34 | W.PN.HOSP.TC ---
Today's Communication/Plan
-
Monitor vital signs
see plan
Continue to monitor bleeding
Hopeful DC tomorrow
Assessment / Plan
Assessment / Plan
Assessment:
Acute lower GI bleed, with acute blood loss anemia
- likely diverticular in origin
- s/p CTA with + GI bleed in descending colon. s/p negative IR angiogram
- GI following
Now tolerating diet, bloody bowel movement this morning. GI aware. Continue to closely monitor. Hopeful DC once bleeding stopped. No plan for scope at this time
- monitor Hb and for clinical bleeding
Essential Hypertension
- Hold amlodipine in setting of active bleed; restart when blood pressure greater than 140/90
COPD, no acute exacerbation
- continue Trelegy
Hypothyroidism
- continue levothyroxine
Migraine Headaches
- continue propranolol for prophylaxis
Insomnia
- continue trazodone
DVT proph: SCDs due to GI bleed
Code Status: DNR/DNI confirmed with patient
General: No Apparent Distress
HEENT: Normocephalic and Atraumatic
Respiratory: Negative Wheezes
Cardiac: Regular Rhythm and S1/S2
GI: Soft and Nontender
Genito-urinary: No Costovertebral Tender
Neuro: AO x 3
Psych: Calm
Anticipated Discharge: Within 24 hours
Subjective/Interval History
-
Date of Service: July 03, 2024
Denies pain
Objective Data
-
Labs:
Laboratory Results
07/03/24
10:06
WBC 7.6
Hgb 12.1
Hct 36.1 L
Plt Count 202
Sodium 137
Potassium 3.9
Chloride 102
Carbon Dioxide 26
BUN 11
Creatinine 0.7
Glucose 151 H
Calcium 8.8
Vital Signs:
Vital Signs
Temp Pulse Resp BP Pulse Ox
97.4 F 65 17 133/66 96
07/03/24 07:32 07/03/24 07:33 07/03/24 07:32 07/03/24 07:33 07/03/24 07:32
I&O
07/02/24 07/03/24 07/04/24
06:59 06:59 06:59
Intake Total 75 / 75 400 / 400 180 / 180
Balance 75 / 75 400 / 400 180 / 180
[2024-07-03 15:20] VITALS: BP 147/64
--- NOTE | 2024-07-03 15:30 | PTCARENOTE ---
Patient received fro LDRP. AAOx3. Ambulated from stretcher to bed without difficulties. denies any chandler or discomfort, ca make needs known.Plan f care ongoing.
[2024-07-03 16:04] VITALS: BP 151/74
[2024-07-03] MEDS: INDERAL PO (17:02)
[2024-07-03] MEDS: DESYREL 50 MG PO (21:24)
[2024-07-03 23:30] VITALS: BP 132/56
[2024-07-04] MEDS: SYNTHROID 88 MCG PO (05:46)
--- NOTE | 2024-07-04 06:01 | W.PN.GI.CBS2 ---
Today's Communication / Plan
-
Please see assessment and plan for details.
Assessment / Plan
-
1. GI bleed with positive CT scan : In the distal descending, likely diverticular, with negative angiogram in IR. She has been stable for more than 48 hours, with 1 bowel movement yesterday with likely old blood, hemoglobin remained stable. Await
morning CBC, though if again stable is okay to DC from GI standpoint.
Subjective
Subjective
Date of Service: July 04, 2024
Patient feeling well overnight, 1 bowel movement yesterday with some older looking blood, though none since, no abdominal pain, nausea or vomiting, tolerating diet without difficulty.
Objective
Data Reviewed
Laboratory Data:
Laboratory Results
PT 13.1 Sec (11.4-14.6) 07/01/24 10:27
INR 0.96 07/01/24 10:27
APTT 30.3 Sec (23.4-35.0) 07/01/24 10:27
Total Bilirubin 0.7 mg/dl (0.2-1.3) 07/01/24 10:27
AST 23 U/L (14-36) 07/01/24 10:27
ALT 20 U/L (0-35) 07/01/24 10:27
Alkaline Phosphatase 89 U/L (38-126) 07/01/24 10:27
Vital Signs and I&O:
Vital Signs
Temp Pulse Resp BP Pulse Ox
97.8 F 75 18 132/56 93
07/03/24 23:30 07/03/24 23:30 07/03/24 23:30 07/03/24 23:30 07/03/24 23:30
I&O
07/02/24 07/03/24 07/04/24
06:59 06:59 06:59
Intake Total 75 / 75 400 / 400 660 / 660
Balance 75 / 75 400 / 400 660 / 660
Physical Exam
Physical Exam
General: NAD
Abdomen: normal bowel sounds, soft, no tenderness, no masses or bruits, no ascites
[2024-07-04 06:46] LABS: % Basophils 0.8 % (0-2); % Eosinophils 2.9 % (0-6); % Immature Granulocytes 0.5 % (0-0.5); % Lymphocytes 21.4 % (20.5-51.1); % Monocytes 7.3 % (1.7-9.3); % Neutrophils 67.1 % (42.2-75.2); Absolute Basophils 0.1 10^3/uL (0-0.2); Absolute Eosinophils 0.2 10^3/uL (0-0.7); Absolute Lymphocytes 1.3 10^3/uL (1.2-3.4); Absolute Monocytes 0.5 10^3/uL (0.1-0.6); Absolute Neutrophils 4.2 10^3/uL (1.4-6.5); Hematocrit 31.2 % (37.0-47.0); Hemoglobin 10.7 g/dL (12.0-16.0); Mean Corp Hgb Conc. 34.3 g/dL (33.0-37.0); Mean Corpuscular Hgb 32.8 pg (27.0-31.0); Mean Corpuscular Volume 95.7 fL (81.0-99.0); Mean Platelet Volume 10.4 fL (7.4-10.4); Nucleated Red Blood Cells % 0 %; Platelet Count 171 10^3/uL (130-400); Red Blood Cell Count 3.26 10^6/uL (4.20-5.40); Red Cell Dist. Width 12.1 % (11.5-14.5); White Blood Cell Count 6.3 10^3/uL (4.8-10.8)
[2024-07-04 07:09] LABS: Blood Urea Nitrogen 14 mg/dl (7-17); Calcium 8.6 mg/dl (8.4-10.2); Carbon Dioxide 30 mmol/L (22-30); Chloride 103 mmol/L (98-107); Estimated Creatinine Clearance 41 ml/min; Glucose 95 mg/dl (70-99); Sodium 137 mmol/L (135-145); eGFR > 60.00
[2024-07-04 07:33] VITALS: BP 125/62
[2024-07-04] MEDS: SYMBICORT 160/4.5 MCG INHALER INH ×2 (07:41→19:09)
[2024-07-04] MEDS: SPIRIVA RESPIMAT 2.5 MCG INH (07:41)
[2024-07-04] MEDS: INDERAL 20 MG PO (09:17)
--- NOTE | 2024-07-04 12:28 | W.PN.HOSP.TC ---
Today's Communication/Plan
-
Monitor vital signs
see plan
Continue with clears
Repeat hemoglobin today
GI following
monitor bloody Bm's
Assessment / Plan
Assessment / Plan
Assessment:
Acute lower GI bleed, with acute blood loss anemia
- likely diverticular in origin
- s/p CTA with + GI bleed in descending colon. s/p negative IR angiogram
- GI following
Now with multiple bloody bowel movements again. GI aware. Repeat hemoglobin at noon. Will downgrade diet to clears for now. Denies abdominal pain
CTA 07/04 without any acute bleeding. Does show diverticuli.
- monitor Hb and for clinical bleeding
Essential Hypertension
- Hold amlodipine in setting of active bleed; restart when blood pressure greater than 140/90
COPD, no acute exacerbation
- continue Trelegy
Hypothyroidism
- continue levothyroxine
Migraine Headaches
- continue propranolol for prophylaxis
Insomnia
- continue trazodone
DVT proph: SCDs due to GI bleed
Code Status: DNR/DNI confirmed with patient
General: No Apparent Distress
HEENT: Normocephalic and Atraumatic
Respiratory: Negative Wheezes
Cardiac: Regular Rhythm and S1/S2
GI: Soft and Nontender
Genito-urinary: No Costovertebral Tender
Neuro: AO x 3
Psych: Calm
Anticipated Discharge: 24 - 48 hours
Subjective/Interval History
-
Date of Service: July 04, 2024
Denies abdominal pain
Objective Data
-
Labs:
Laboratory Results
07/04/24 07/04/24
06:05 12:00
WBC 6.3 Pending
Hgb 10.7 L Pending
Hct 31.2 L Pending
Plt Count 171 Pending
Sodium 137
Potassium 4.0
Chloride 103
Carbon Dioxide 30
BUN 14
Creatinine 0.7
Glucose 95
Calcium 8.6
Vital Signs:
Vital Signs
Temp Pulse Resp BP Pulse Ox
98.1 F 72 20 125/62 100
07/04/24 07:33 07/04/24 09:17 07/04/24 07:33 07/04/24 09:17 07/04/24 07:33
I&O
07/03/24 07/04/24 07/05/24
06:59 06:59 06:59
Intake Total 400 / 400 1140 / 1140
Balance 400 / 400 1140 / 1140
[2024-07-04 12:50] LABS: Hematocrit 32.2 % (37.0-47.0); Hemoglobin 11.3 g/dL (12.0-16.0); Mean Corp Hgb Conc. 35.1 g/dL (33.0-37.0); Mean Corpuscular Hgb 33.2 pg (27.0-31.0); Mean Corpuscular Volume 94.7 fL (81.0-99.0); Mean Platelet Volume 10.8 fL (7.4-10.4); Platelet Count 199 10^3/uL (130-400); Red Cell Dist. Width 11.9 % (11.5-14.5); White Blood Cell Count 8.2 10^3/uL (4.8-10.8)
--- NOTE | 2024-07-04 12:54 | W.PN.UPDATE ---
Update Note
Progress Note Update
Events noted, patient with 3 large bloody bowel movements. No lightheadedness or dizziness, no abdominal pain. CT angiogram negative now. I discussed with her and her daughter, given recurrent bleeding with planned diagnostic colonoscopy
tomorrow, though again still likely diverticular bleed. Will continue to trend hemoglobin.
[2024-07-04 15:23] VITALS: BP 141/65
[2024-07-04] MEDS: NULYTELY SOLUTION 4 LITERS PO (17:38)
[2024-07-04] MEDS: INDERAL 10 MG PO (17:38)
[2024-07-04 20:41] LABS: Hematocrit 34.3 % (37.0-47.0); Hemoglobin 11.8 g/dL (12.0-16.0); Mean Corp Hgb Conc. 34.4 g/dL (33.0-37.0); Mean Corpuscular Hgb 32.5 pg (27.0-31.0); Mean Corpuscular Volume 94.5 fL (81.0-99.0); Mean Platelet Volume 10.4 fL (7.4-10.4); Platelet Count 223 10^3/uL (130-400); Red Blood Cell Count 3.63 10^6/uL (4.20-5.40); Red Cell Dist. Width 11.9 % (11.5-14.5); White Blood Cell Count 8.3 10^3/uL (4.8-10.8)
[2024-07-04] MEDS: ZOFRAN 4 MG IV (20:49)
[2024-07-04] MEDS: DESYREL PO (21:01)
[2024-07-04 23:49] VITALS: BP 121/47
[2024-07-05] VITALS (10 sets, daily range): BP systolic 16–130; BP diastolic 44–83
[2024-07-05 04:24] LABS: % Basophils 0.7 % (0-2); % Eosinophils 2.2 % (0-6); % Immature Granulocytes 0.4 % (0-0.5); % Lymphocytes 24.8 % (20.5-51.1); % Monocytes 6.2 % (1.7-9.3); % Neutrophils 65.7 % (42.2-75.2); Absolute Basophils 0.1 10^3/uL (0-0.2); Absolute Eosinophils 0.2 10^3/uL (0-0.7); Absolute Lymphocytes 1.7 10^3/uL (1.2-3.4); Absolute Monocytes 0.4 10^3/uL (0.1-0.6); Absolute Neutrophils 4.6 10^3/uL (1.4-6.5); Hematocrit 32.5 % (37.0-47.0); Hemoglobin 11.4 g/dL (12.0-16.0); Mean Corp Hgb Conc. 35.1 g/dL (33.0-37.0); Mean Corpuscular Volume 94.2 fL (81.0-99.0); Mean Platelet Volume 10.2 fL (7.4-10.4); Nucleated Red Blood Cells % 0 %; Platelet Count 180 10^3/uL (130-400); Red Blood Cell Count 3.45 10^6/uL (4.20-5.40); Red Cell Dist. Width 11.9 % (11.5-14.5); White Blood Cell Count 6.9 10^3/uL (4.8-10.8)
[2024-07-05 04:25] LABS: Hematocrit 32.5 % (37.0-47.0); Hemoglobin 11.1 g/dL (12.0-16.0); Mean Corp Hgb Conc. 34.2 g/dL (33.0-37.0); Mean Corpuscular Hgb 32.1 pg (27.0-31.0); Mean Corpuscular Volume 93.9 fL (81.0-99.0); Mean Platelet Volume 10.5 fL (7.4-10.4); Platelet Count 187 10^3/uL (130-400); Red Blood Cell Count 3.46 10^6/uL (4.20-5.40); Red Cell Dist. Width 11.9 % (11.5-14.5); White Blood Cell Count 7.2 10^3/uL (4.8-10.8)
[2024-07-05] MEDS: TYLENOL 1000 MG PO (04:35)
[2024-07-05] MEDS: SYNTHROID 88 MCG PO (04:35)
--- NOTE | 2024-07-05 04:40 | W.PN.UPDATE ---
Update Note
Progress Note Update
pt c/o feeling heart race. RN noted HR to be in 150s. Pt was not on tele at this time.
EKG with new afib with RVR. No hx of afib.
Last Echo apr 2024 LV ejection fraction is 55-60%.
Takes propranolol for migraine prophylaxis. Will hold for now and start cardizem gtt.
Pt was to have colonoscopy this am for gi bleeding. Was suppose to start second half of colo prep this am at 0600 (pt nausea last gurmeet and could only complete 2L).
Unlikely that GI will continue colonoscopy today with new afib. RN will let GI know events at 0600.
Will consult CBC cardiology for new afib. Pt known to Dr jalloh.
Will add tele monitoring.
Awaiting am labs
[2024-07-05 04:48] LABS: Blood Urea Nitrogen 11 mg/dl (7-17); Calcium 8.9 mg/dl (8.4-10.2); Carbon Dioxide 26 mmol/L (22-30); Chloride 104 mmol/L (98-107); Estimated Creatinine Clearance 47 ml/min; Glucose 102 mg/dl (70-99); Potassium 3.5 mmol/L (3.5-5.1); Sodium 137 mmol/L (135-145); eGFR > 60.00
[2024-07-05 05:28] LABS: Magnesium 1.7 mg/dl (1.6-2.3)
[2024-07-05] MEDS: MAGNESIUM OXIDE 500 MG PO (05:53)
[2024-07-05] MEDS: CARDIZEM 125 IV (05:53)
--- NOTE | 2024-07-05 08:08 | CON.CAR ---
Addendum entered and electronically signed by Castillo Abarca MD 07/05/24 10:33:
I saw and examined the patient.
The PROJECT MANAGEMENT ENGINEER's note was reviewed and I agree with the note.
Comment: 89 yo female with migraines, RBBB, HTN, COPD and prior diverticular bleed in 2021, who presents to the ER 07/01/24 with c/o BRBPR.
HRs are controlled on IV dilt, continue today, transition to oral dilt tomorrow.
Anticoagulation when OK from GI perspective.
Low risk for colonoscopy.
Original Note:
Consultation
Consultation Request
Date/Time Consultation Requested: 07/05/24 4:30a
Date/Time Consultation Performed: 07/05/24 8a
Requesting Provider: LOLA Lloyd
Performing Provider: LOLA Corrales for Dr. Abarca
Reason for Consultation: new Afib with RVR
Medical History
-
Chief Complaint: GI bleed
History of Present Illness:
Mrs. Santizo is an 89 yo female with migraines, RBBB, HTN, COPD and prior diverticular bleed in 2021, who presents to the ER 07/01/24 with c/o BRBPR. She is admitted to the hospitalist service for GI bleed and GI is following. This am she
developed rapid Afib and is now on a Diltiazem drip. She admits to feeling palpitations with Afib when it began and now denies palpitations.
She had LE edema 03/2024 that improved with Lasix, managed by PCP, echo 04/2024 EF 55-60%, mild MR. She takes Lasix now only PRN and not needed it recently.
Past Medical History
Past Medical History: Other (as above)
Past Surgical History: Cholecystectomy, Gynecological (hysterectomy), Orthopedic (right TKA 2016) and Other (partial thyroidectomy)
Social History
Tobacco: Former Smoker (40 pack year)
Alcohol: None
Personal:
Living: With Family
Family History
Family History: Reviewed & Not Pertinent
Allergies / Home Medications
Allergy/AdvReac Type Severity Reaction Status Date / Time
Shellfish *RETIRED-02/14/12 Allergy Nausea / Verified 07/01/24 10:15
[Shellfish] Vomiting;headache
Sulfa (Sulfonamide Allergy Nausea / Verified 07/01/24 10:15
Antibiotics) Vomiting/heADache
�Medication �Instructions �Recorded �Confirmed �Type
ascorbic acid (vitamin C) 500 mg 1,000 mg PO DAILY Supplement 11/03/10 07/01/24 History
tablet (Vitamin C)
levothyroxine 88 mcg tablet 88 mcg PO DAILY Thyroid 11/03/10 07/01/24 History
(Synthroid)
amlodipine 2.5 mg tablet (Norvasc) 2.5 mg PO DAILY Blood pressure 12/20/21 07/01/24 History
cholecalciferol (vitamin D3) 25 50 mcg PO DAILY Supplement 12/20/21 07/01/24 History
mcg (1,000 unit) capsule (Vitamin
D3)
omega 0-gew-nxm-fish oil 300 1 cap PO DAILY Supplement 12/20/21 07/01/24 History
mg-1,000 mg capsule (Fish Oil)
propranolol 20 mg tablet 20 mg PO DAILY Blood pressure 12/20/21 07/01/24 History
therapeutic multivitamin 1 tab PO DAILY Supplement 12/20/21 07/01/24 History
trazodone 50 mg tablet 50 mg PO HS 12/20/21 07/01/24 History
ipratropium bromide 42 mcg (0.06 1 spray intranasal TID PRN 02/28/22 07/01/24 History
%) nasal spray congestion
albuterol sulfate 90 mcg/actuation 90 mcg inhalation DAILY PRN sob 03/03/22 07/01/24 History
aerosol inhaler
fluticasone fur. 200 mcg-umeclid 1 inh inhalation DAILY 07/01/24 07/01/24 History
62.5 mcg-vilant 25 mcg
inhalat.powder (Trelegy Ellipta)
polyethylene glycol 3350 17 4 g PO DAILY PRN constipation 07/01/24 07/01/24 History
gram/dose oral powder (Miralax)
propranolol 20 mg tablet 10 mg PO QPM 07/01/24 07/01/24 History
psyllium husk 3.4 gram/5.4 gram 1 tbsp PO DAILY 07/01/24 07/01/24 History
oral powder (Metamucil)
Review of Systems
-
History Source: Patient
All other systems: Negative unless noted
Physical Exam
Vital Signs
Temp Pulse Resp BP Pulse Ox
97.5 F 136 18 130/83 97
07/04/24 23:49 07/05/24 04:50 07/05/24 04:50 07/05/24 04:50 07/05/24 07:36
Lab Results
07/05/24 04:13
07/05/24 04:13
Physical Exam
General: Well Developed, Well Nourished and No Apparent Distress
HEENT: Normocephalic, Anicteric and Moist Mucous Membranes
Respiratory: Clear and Non Labored Respirations
Cardiac: S1/S2 and Irregular Rhythm
Breast: Deferred by me
GI: Soft, Non Tender and Normal Bowel Sounds
Rectal: Deferred by Provider
Genito-urinary: Clear Urine
Musculoskeletal: No Clubbing, No Cyanosis and No Edema
Skin: Warm and Dry
Neuro: AO x 3
Hematologic/Lymphatic: No Lymphadenopathy
Psych: Calm
Impression / Plan
-
Afib - new onset 07/05/24 morning with RVR.
- symptomatic with palpitations with rapid rates.
- now on IV Diltiazem drip and rates improved, in 90s.
- [id number] score is 4 (female, age, HTN).
- no OAC now given active GIB and need for colonoscopy. will reassess after colonoscopy.
- echo 04/2024 with EF 55-60%, mild MR.
- uses Propranolol for migraines as an outpatient.
GIB - acute.
- lower, diverticular bleed.
- GI managing, plan for colonoscopy today.
- trending Hgb.
HTN - stable.
- she is on Amlodipine 2.5mg daily as an outpatient.
- likely stop Amlodipine in favor of Diltiazem for Afib at discharge.
COPD - stable on inhalers, continue.
Migraines - stable on Propranolol, continue.
Data Reviewed
-
EKG: Tracing Personally Visualized and interpreted (Afib 114 bpm, RBBB)
CT Scan: Report Reviewed by me (07/01/24 CTA abd/pelvis with active bleeding in the distal descending colon. 07/04/24 no evidence of active gastrointestinal hemorrhage during the course of the examination.)
Labs: Labs Reviewed by me
Old Records: Reviewed
[2024-07-05] MEDS: KCL 270 MEQ IV (08:12)
[2024-07-05] MEDS: SYMBICORT 160/4.5 MCG INHALER 2 PUFF INH (08:46)
[2024-07-05] MEDS: SPIRIVA RESPIMAT 2.5 MCG 2 PUFF INH (08:47)
[2024-07-05 09:02] LABS: Troponin I 0.041 ng/ml
--- NOTE | 2024-07-05 10:44 | W.PN.HOSP.TC ---
Addendum entered and electronically signed by Jonny Melendez MD 07/05/24 13:50:
Discussed with daughter over the phone
Original Note:
Today's Communication/Plan
-
Monitor vital signs see plan
Overnight went into A-fib with RVR, now on Cardizem drip
Discussed with cardiology and GI, okay to proceed for colonoscopy
Colonoscopy today
Monitor hemoglobin
Monitor electrolytes
Assessment / Plan
Assessment / Plan
Assessment:
Acute lower GI bleed, with acute blood loss anemia
- likely diverticular in origin
- s/p admission CTA with + GI bleed in descending colon. s/p negative IR angiogram
- GI following
Now with multiple bloody bowel movements again. GI aware. No abdominal pain. Plan for colonoscopy 07/05
CTA 07/04 without any acute bleeding. Does show diverticuli.
- monitor Hb and for clinical bleeding
New onset atrial fibrillation with RVR
Cardiology following
Recent echo with normal EF, no need to repeat
Continue with Cardizem drip
Anticoagulation per cardiology when okay with GI pending scope
Mild troponin elevation, likely nonischemic myocardial injury secondary to A-fib
Continue to monitor
Essential Hypertension
- Hold amlodipine in setting of active bleed; restart when blood pressure greater than 140/90
COPD, no acute exacerbation
- continue Trelegy
Hypothyroidism
- continue levothyroxine
Check TSH with reflex
Migraine Headaches
-Hold propranolol for prophylaxis
Insomnia
- continue trazodone
DVT proph: SCDs due to GI bleed
Code Status: DNR/DNI confirmed with patient
General: No Apparent Distress
HEENT: Normocephalic and Atraumatic
Respiratory: Negative Wheezes
Cardiac: iregular Rhythm, tachycardia and S1/S2
GI: Soft and Nontender
Genito-urinary: No Costovertebral Tender
Neuro: AO x 3
Psych: Calm
I spent a total of 52 minutes with the patient or on the floor. More than 50% of this time involved counseling and coordination of care.
Anticipated Discharge: 24 - 48 hours
Subjective/Interval History
-
Date of Service: July 05, 2024
Denies pain
Objective Data
-
Labs:
Laboratory Results
07/04/24 07/05/24 07/05/24
23:59 04:13 04:13
WBC Cancelled 6.9 7.2
Hgb Cancelled 11.4 L
Hct Cancelled
Plt Count Cancelled
Sodium
Potassium
Chloride
Carbon Dioxide
BUN
Creatinine
Glucose
Calcium
07/05/24 07/05/24 07/05/24
04:13 04:13 04:13
WBC
Hgb 11.1 L
Hct 32.5 L 32.5 L
Plt Count 180 187
Sodium 137
Potassium 3.5
Chloride 104
Carbon Dioxide 26
BUN 11
Creatinine 0.6
Glucose 102 H
Calcium 8.9
Vital Signs:
Vital Signs
Temp Pulse Resp BP Pulse Ox
97.6 F 82 18 123/71 91
07/05/24 07:50 07/05/24 08:51 07/05/24 08:51 07/05/24 07:50 07/05/24 08:51
I&O
07/04/24 07/05/24 07/06/24
06:59 06:59 06:59
Intake Total 1140 / 1140 3180 / 3180
Balance 1140 / 1140 3180 / 3180
--- NOTE | 2024-07-05 14:40 | W.PN.UPDATE ---
Update Note
Progress Note Update
colonoscopy:
multiple large diverticula holding on to lots of old blood clots which are coming out with the prep. No blood and light brown stool everywhere else. No hemorrhoids.
low residue diet, monitor hgb, miralax
explained to patient and her daughter Zeke
[2024-07-05] MEDS: MIRALAX 17 GRAMS PO (15:27)
--- NOTE | 2024-07-05 15:43 | PTCARENOTE ---
pt back from GI lab s/p colonoscopy. pt is AAO*3, Vss, room air. pt denies any pain or discomfort. pt converted to sinus rhythm in GI lab, Cardizem gtt changed to 5 ml/hr in GI lab. pt in low res diet. call vazquez within the reach. plan of care
ongoing.
--- NOTE | 2024-07-05 17:38 | PTCARENOTE ---
[facility]
[2024-07-05] MEDS: CARDIZEM 60 MG PO (17:41)
[2024-07-05] MEDS: SYMBICORT 160/4.5 MCG INHALER INH (19:39)
[2024-07-05 20:51] LABS: Troponin I 0.039 ng/ml
[2024-07-05] MEDS: DESYREL 50 MG PO (20:57)
[2024-07-06 03:55] VITALS: BP 106/48
[2024-07-06] MEDS: SYNTHROID 88 MCG PO (05:47)
[2024-07-06 06:40] LABS: % Basophils 0.7 % (0-2); % Eosinophils 3.6 % (0-6); % Immature Granulocytes 0.5 % (0-0.5); % Lymphocytes 27.8 % (20.5-51.1); % Monocytes 6.3 % (1.7-9.3); % Neutrophils 61.1 % (42.2-75.2); Absolute Eosinophils 0.2 10^3/uL (0-0.7); Absolute Lymphocytes 1.7 10^3/uL (1.2-3.4); Absolute Monocytes 0.4 10^3/uL (0.1-0.6); Absolute Neutrophils 3.7 10^3/uL (1.4-6.5); Hemoglobin 9.7 g/dL (12.0-16.0); Mean Corp Hgb Conc. 33.4 g/dL (33.0-37.0); Mean Corpuscular Volume 98.6 fL (81.0-99.0); Mean Platelet Volume 10.7 fL (7.4-10.4); Nucleated Red Blood Cells % 0 %; Platelet Count 193 10^3/uL (130-400); Red Blood Cell Count 2.94 10^6/uL (4.20-5.40); Red Cell Dist. Width 12.2 % (11.5-14.5)
[2024-07-06 07:08] LABS: Blood Urea Nitrogen 12 mg/dl (7-17); Calcium 8.5 mg/dl (8.4-10.2); Carbon Dioxide 27 mmol/L (22-30); Chloride 105 mmol/L (98-107); Estimated Creatinine Clearance 47 ml/min; Glucose 93 mg/dl (70-99); Sodium 137 mmol/L (135-145); eGFR > 60.00
--- NOTE | 2024-07-06 07:30 | W.PN.HOSP.TC ---
Today's Communication/Plan
-
Hgb dropped this morning
Monitor another day, GI will also see patient tomorrow morning
Continue to monitor on telemetry given recent A-Fib with RVR
Assessment / Plan
Assessment / Plan
Physical Exam
General: No Apparent Distress
HEENT: Normocephalic and Atraumatic
Respiratory: Negative Wheezes
Cardiac: iregular Rhythm, and S1/S2
GI: Soft and Nontender. Positive bowel sounds.
Neuro: AAO x 3
Psych: Calm
Assessment/Plan
Acute lower GI bleed, with acute blood loss anemia
Diverticulosis in the sigmoid colon and in the descending colon - multiple large diverticula holding on to lots of old blood clots
Old blood in the sigmoid colon
- Colonoscopy on 07/05/24 -- results are above and in risk control product liability director's report
- likely diverticular in origin
- s/p admission CTA with + GI bleed in descending colon. s/p negative IR angiogram
- GI following
- CTA 07/04/24 without any acute bleeding. Does show diverticuli.
- Monitor Hgb and for clinical bleeding
- If significant rebleeding will need IR versus surgical treatment for diverticular bleed.
- Continue low residue diet, monitor hgb, miralax to get old clots out
- Fiber as an outpatient
- Hgb drop this morning, monitor for 1 more day, and if stable going into tomorrow, then can discharge patient
New onset atrial fibrillation with RVR - new onset 07/05/24 morning with RVR - symptomatic with palpitations with rapid rates.
Cardiology following
Status post Cardizem Drip.
Recent echo with normal EF, no need to repeat
Patient uses Propranolol for migraines as an outpatient.
Anticoagulation per cardiology: in 1 week, start Eliquis 2.5 mg BID; if recurrent bleeding noted, can consider Watchman Device.
Mild troponin elevation, likely nonischemic myocardial injury secondary to A-fib
Continue to monitor
Essential Hypertension
- Hold amlodipine in setting of active bleed; restart when blood pressure greater than 140/90
- Likely stop Amlodipine in favor of Diltiazem for Afib at discharge.
COPD, no acute exacerbation
- continue Trelegy
Hypothyroidism
- continue levothyroxine
Check TSH with reflex
Migraine Headaches
-Hold propranolol for prophylaxis
Insomnia
- continue trazodone
DVT proph: SCDs due to GI bleed
Code Status: DNR/DNI confirmed with patient
Anticipated Discharge: 24 - 48 hours
Subjective/Interval History
-
Date of Service: July 06, 2024
Patient was seen and examined. She reported feeling okay, denied any bowel movement overnight.
Objective Data
-
Labs:
Laboratory Results
07/06/24
06:10
WBC 6.0
Hgb 9.7 L
Hct 29.0 L
Plt Count 193
Sodium 137
Potassium 4.0
Chloride 105
Carbon Dioxide 27
BUN 12
Creatinine 0.6
Glucose 93
Calcium 8.5
Vital Signs:
Vital Signs
Temp Pulse Resp BP Pulse Ox
98.2 F 77 18 106/48 95
07/06/24 03:55 07/06/24 03:55 07/06/24 03:55 07/06/24 03:55 07/06/24 03:55
I&O
07/05/24 07/06/24 07/07/24
06:59 06:59 06:59
Intake Total 3180 / 3180 720 / 720
Balance 3180 / 3180 720 / 720
--- NOTE | 2024-07-06 07:32 | W.PN.CD ---
Today's Communication / Plan
-
- Hold OAC for now
- Start Eliquis 2.5 mg BID in a week. If recurrent bleeding noted, can consider Watchman.
Impression / Plan
-
Afib - new onset 07/05/24 morning with RVR.
- symptomatic with palpitations with rapid rates.
- now in sinus rhythm
- [id number] score is 4 (female, age, HTN).
- no OAC now given active GIB and need for colonoscopy.
- With active bleed, will wait for a week before starting Eliquis - Appropriate dose 2.5 mg BID (for wt and age)
- echo 04/2024 with EF 55-60%, mild MR.
- uses Propranolol for migraines as an outpatient.
GIB - acute.
- lower, diverticular bleed.
- GI managing, s/p colonoscopy
- Large diverticular bleed with blood clots.
- trending Hgb.
HTN - stable.
- she is on Amlodipine 2.5mg daily as an outpatient.
- likely stop Amlodipine in favor of Diltiazem for Afib at discharge.
COPD - stable on inhalers, continue.
Migraines - stable on Propranolol, continue.
Physical Exam
Vital Signs/Labs
Vital Signs
Temp Pulse Resp BP Pulse Ox
98.2 F 77 18 106/48 95
07/06/24 03:55 07/06/24 03:55 07/06/24 03:55 07/06/24 03:55 07/06/24 03:55
07/06/24 06:10
07/06/24 06:10
PT 13.1 Sec (11.4-14.6) 07/01/24 10:27
INR 0.96 07/01/24 10:27
APTT 30.3 Sec (23.4-35.0) 07/01/24 10:27
Magnesium 2.0 mg/dl (1.6-2.3) 07/06/24 06:10
LAB Results
07/05/24 07/05/24 07/05/24
08:05 16:21 20:06
Troponin I 0.041 H* 0.040 H* 0.039 H*
Physical Exam
Constitutional: No acute distress and Comfortable
EENT: Anicteric and Moist mucous membranes
Cardiovascular: Rhythm & rate is regular, JVD pressure is normal and Systolic murmur present
Respiratory: Respiratory effort normal, Lungs clear to auscul., Crackles Absent and Rhonchi Absent
GI: Soft, Non tender and Normal bowel sounds
Neuro/Psych: Alert, Oriented and AO x 3
Data Reviewed
-
Date of Service: July 06, 2024
Medical Decision Making: Reviewed Test Results, Test Interpretation and Review of Case with other Provider
EKG: Tracing Personally Visualized and interpreted
Echo: Report Reviewed by me
Labs: Labs Reviewed by me
Old Records: Reviewed
[2024-07-06 07:37] LABS: TSH Reflex To Free T4 3.01 uIU/ml (0.47-4.68)
[2024-07-06] MEDS: SPIRIVA RESPIMAT 2.5 MCG 2 PUFF INH (07:37)
[2024-07-06] MEDS: SYMBICORT 160/4.5 MCG INHALER 2 PUFF INH (07:38)
[2024-07-06 07:45] VITALS: BP 122/69
[2024-07-06] MEDS: MIRALAX 17 GRAMS PO ×2 (08:59→17:07)
--- NOTE | 2024-07-06 11:06 | W.PN.GI.CBS2 ---
Today's Communication / Plan
-
continue miralax
Assessment / Plan
-
Diverticular bleed: No active bleeding since colonoscopy done yesterday afternoon.
- Pt and daughter and nursing aware that sigmoid large diverticula with lots of old clots. Expect blood per rectum as they pass, will continue with miralax
- Follow hgb, slight drop yesterday likely from bleeding prior to colonoscopy. No active bleeding on colonoscopy
- If rebleeds will need surgical/IR intervention. diverticula that bleed was in the sigmoid.
- fiber as an outpatient
Subjective
Subjective
Date of Service: July 06, 2024
Pt no bleeding since colonoscopy
did take miralax
eating
Objective
Data Reviewed
Laboratory Data:
Laboratory Results
07/06/24 06:10
07/06/24 06:10
Laboratory Results
PT 13.1 Sec (11.4-14.6) 07/01/24 10:27
INR 0.96 07/01/24 10:27
APTT 30.3 Sec (23.4-35.0) 07/01/24 10:27
Magnesium 2.0 mg/dl (1.6-2.3) 07/06/24 06:10
Total Bilirubin 0.7 mg/dl (0.2-1.3) 07/01/24 10:27
AST 23 U/L (14-36) 07/01/24 10:27
ALT 20 U/L (0-35) 07/01/24 10:27
Alkaline Phosphatase 89 U/L (38-126) 07/01/24 10:27
Vital Signs and I&O:
Vital Signs
Temp Pulse Resp BP Pulse Ox
97.7 F 79 14 122/69 92
07/06/24 07:45 07/06/24 07:45 07/06/24 07:45 07/06/24 07:45 07/06/24 10:32
I&O
07/05/24 07/06/24 07/07/24
06:59 06:59 06:59
Intake Total 3180 / 3180 720 / 720 180 / 180
Balance 3180 / 3180 720 / 720 180 / 180
Physical Exam
Physical Exam
GI: Soft, Non Distended and Non Tender
Neuro: Non Focal
[2024-07-06 11:45] VITALS: BP 121/71
[2024-07-06 15:45] VITALS: BP 129/62
[2024-07-06] MEDS: SYMBICORT 160/4.5 MCG INHALER INH (19:09)
[2024-07-06 19:40] VITALS: BP 135/70
[2024-07-06] MEDS: DESYREL 50 MG PO (21:02)
--- NOTE | 2024-07-06 23:40 | PTCARENOTE ---
Pt now in uncontrolled afib with HR 90-140's BP 135/70. Pt denies any chest pain or SOB. Pt does state that she feels like her hear is 'racing'. LORENZO cortez notified. Patient given 60mg Cardizem PO as per order. Will continue to monitor
[2024-07-06] MEDS: CARDIZEM 60 MG PO (23:45)
[2024-07-06 23:46] VITALS: BP 132/65
[2024-07-07] VITALS (8 sets, daily range): BP systolic 109–140; BP diastolic 58–87
--- NOTE | 2024-07-07 01:00 | PTCARENOTE ---
Patient continues to be in uncontrolled AFIB with HR now 130-140's. BP 132/65. Patient denies any chest pain or shortness of breath. Patient c/o 'My heart feels like its racing.' LORENZO Bravo notified. Patient ordered and given 10mg Cardizem IV.
Will continue to monitor.
[2024-07-07] MEDS: CARDIZEM 10 MG IV (01:08)
--- NOTE | 2024-07-07 01:51 | PTCARENOTE ---
Patient continues to be in afib with a Heart rate 90-110. Patient denies any chest pain or shortness of breath. Pt denies feeling her heart race or racing. LORENZO Bravo notified. No new orders at this time. Will continue to monitor.
[2024-07-07] MEDS: SYNTHROID 88 MCG PO (05:34)
[2024-07-07 07:25] LABS: Hematocrit 28.2 % (37.0-47.0); Hemoglobin 9.6 g/dL (12.0-16.0); Mean Corpuscular Hgb 32.7 pg (27.0-31.0); Mean Corpuscular Volume 95.9 fL (81.0-99.0); Mean Platelet Volume 10.4 fL (7.4-10.4); Platelet Count 201 10^3/uL (130-400); Red Blood Cell Count 2.94 10^6/uL (4.20-5.40); Red Cell Dist. Width 12.4 % (11.5-14.5); White Blood Cell Count 7.4 10^3/uL (4.8-10.8)
--- NOTE | 2024-07-07 07:39 | W.PN.HOSP.TC ---
Today's Communication/Plan
-
A-Fib RVR this morning
Propranolol resumed
Cardizem PO also started
Continue to monitor on telemetry
Assessment / Plan
Assessment / Plan
Physical Exam
General: No Apparent Distress
HEENT: Normocephalic and Atraumatic
Respiratory: Negative Wheezes
Cardiac: iregular Rhythm, and S1/S2
GI: Soft and Nontender. Positive bowel sounds.
Neuro: AAO x 3
Psych: Calm
Assessment/Plan
Acute lower GI bleed, with acute blood loss anemia
Diverticulosis in the sigmoid colon and in the descending colon - multiple large diverticula holding on to lots of old blood clots
Old blood in the sigmoid colon
- Colonoscopy on 07/05/24 -- results are above and in endocrinologist's report
- likely diverticular in origin
- s/p admission CTA with + GI bleed in descending colon. s/p negative IR angiogram
- GI following
- CTA 07/04/24 without any acute bleeding. Does show diverticuli.
- Monitor Hgb and for clinical bleeding
- If significant rebleeding will need IR versus surgical treatment for diverticular bleed.
- Continue low residue diet, monitor hgb, nightly Miralax to get old clots out
- Fiber as an outpatient
- Hgb drop this morning, monitor for 1 more day, and if stable going into tomorrow, then can discharge patient
New onset atrial fibrillation with RVR - new onset 07/05/24 morning with RVR - symptomatic with palpitations with rapid rates.
Cardiology following
Cardizem Bolus given and Cardizem Drip restarted on 07/07/24 due to RVR 120-140's bpm with activity and 105-118 bpm at rest
Cardizem Cd 180 mg daily started on 07/07/24
Recent echo with normal EF, no need to repeat
Patient uses Propranolol for thyroid disease per patient -- resume home Propranolol -- okay to resume this as per cardiology, discussed with Dr. Aeljo on 07/07/24
Anticoagulation per cardiology: in 1 week, start Eliquis 2.5 mg BID; if recurrent bleeding noted, can consider Watchman Device.
Mild troponin elevation, likely nonischemic myocardial injury secondary to A-fib
Continue to monitor
Essential Hypertension
- Hold amlodipine in setting of active bleed
- Likely stop Amlodipine in favor of Diltiazem for Afib at discharge.
COPD, no acute exacerbation
- continue Trelegy
Hypothyroidism
- continue levothyroxine
Check TSH with reflex
Migraine Headaches
-Hold propranolol for prophylaxis
Insomnia
- continue trazodone
DVT proph: SCDs due to GI bleed
Code Status: DNR/DNI confirmed with patient
Anticipated Discharge: Within 24 hours
Subjective/Interval History
-
Date of Service: July 07, 2024
Patient was seen and examined. She reported feeling some palpitations this morning.
Objective Data
-
Labs:
Laboratory Results
07/07/24
06:29
WBC 7.4
Hgb 9.6 L
Hct 28.2 L
Plt Count 201
Vital Signs:
Vital Signs
Temp Pulse Resp BP Pulse Ox
98.5 F 101 18 128/68 95
07/07/24 03:45 07/07/24 03:45 07/07/24 03:45 07/07/24 03:45 07/07/24 03:45
I&O
07/06/24 07/07/24 07/08/24
06:59 06:59 06:59
Intake Total 720 / 720 1317 / 1317
Balance 720 / 720 1317 / 1317
--- NOTE | 2024-07-07 07:47 | PTCARENOTE ---
received pt in afib rate was 130-140's with activity, pt was ambulating to bathroom and was asymptomatic. BP stable. at rest pt remained in AFIB but rate now sustaining 105-120's. attending and cardiology notified. cardizem gtt and bolus see MAR
[2024-07-07] MEDS: SPIRIVA RESPIMAT 2.5 MCG 2 PUFF INH (08:05)
[2024-07-07] MEDS: SYMBICORT 160/4.5 MCG INHALER 2 PUFF INH (08:06)
--- NOTE | 2024-07-07 08:07 | W.PN.GI.CBS2 ---
Today's Communication / Plan
-
no further bleeding
Assessment / Plan
-
Diverticular bleed: No active bleeding since colonoscopy done on 07/05 and hgb stable now.
- can cut back on miralax to nightly
- agree with cardiology to wait on OAC for 1 week
- if rebleeds there is no GI intervention that can be done although luckily she has concentrated diverticula in the sigmoid and both IR or surgery would be the options.
since hgb stable will sign off
Subjective
Subjective
Date of Service: July 07, 2024
Pt with no active bleeding. has been taking miralax twice a day to get out clots. She does see old clots with this
Objective
Data Reviewed
Laboratory Data:
Laboratory Results
07/07/24 06:29
07/06/24 06:10
Laboratory Results
PT 13.1 Sec (11.4-14.6) 07/01/24 10:27
INR 0.96 07/01/24 10:27
APTT 30.3 Sec (23.4-35.0) 07/01/24 10:27
Magnesium 2.0 mg/dl (1.6-2.3) 07/06/24 06:10
Total Bilirubin 0.7 mg/dl (0.2-1.3) 07/01/24 10:27
AST 23 U/L (14-36) 07/01/24 10:27
ALT 20 U/L (0-35) 07/01/24 10:27
Alkaline Phosphatase 89 U/L (38-126) 07/01/24 10:27
Vital Signs and I&O:
Vital Signs
Temp Pulse Resp BP Pulse Ox
98.5 F 101 18 128/68 95
07/07/24 03:45 07/07/24 03:45 07/07/24 03:45 07/07/24 03:45 07/07/24 03:45
I&O
07/06/24 07/07/24 07/08/24
06:59 06:59 06:59
Intake Total 720 / 720 1317 / 131
Balance 720 / 720 1317 / 1312
Physical Exam
Physical Exam
GI: Soft, Non Distended and Non Tender
[2024-07-07] MEDS: CARDIZEM 15 MG IV (08:24)
[2024-07-07] MEDS: CARDIZEM 125 IV (08:31)
--- NOTE | 2024-07-07 09:52 | W.PN.CD ---
Today's Communication / Plan
-
-Convert IV diltiazem to p.o.
-With active GI bleed, holding starting anticoagulation therapy at this time.
Impression / Plan
-
Afib
- new onset 07/05/24 morning with RVR. Overnight went back into A-fib at 11:18 PM and came out to sinus at 8:29 AM.
- symptomatic with palpitations with rapid rates.
- now in sinus rhythm
-With recurrent atrial fibrillation, diltiazem drip was again started.
-Will start diltiazem 180 mg p.o. once a day and stop the drip.
- [id number] score is 4 (female, age, HTN).
- no OAC now given active GIB and need for colonoscopy.
- With active bleed, will wait for a week before starting Eliquis - Appropriate dose 2.5 mg BID (for wt and age)
- echo 05/07/2024 with EF 55-60%, mild MR.
- uses Propranolol for hyperthyroid and migraines as an outpatient.
-TSH is 3.01-nl
GIB - acute.
- lower, diverticular bleed.
- GI managing, s/p colonoscopy
- Large diverticular bleed with blood clots.
- trending Hgb.
HTN - stable.
- she is on Amlodipine 2.5mg daily as an outpatient.
- likely stop Amlodipine in favor of Diltiazem for Afib at discharge.
COPD - stable on inhalers, continue.
Migraines - stable on Propranolol, continue.
Physical Exam
Vital Signs/Labs
Vital Signs
Temp Pulse Resp BP Pulse Ox
97.3 F 77 16 132/71 98
07/07/24 07:50 07/07/24 08:45 07/07/24 08:11 07/07/24 08:45 07/07/24 08:11
07/07/24 06:29
07/06/24 06:10
PT 13.1 Sec (11.4-14.6) 07/01/24 10:27
INR 0.96 07/01/24 10:27
APTT 30.3 Sec (23.4-35.0) 07/01/24 10:27
Magnesium 2.0 mg/dl (1.6-2.3) 07/06/24 06:10
LAB Results
07/05/24 07/05/24 07/05/24
08:05 16:21 20:06
Troponin I 0.041 H* 0.040 H* 0.039 H*
Physical Exam
Constitutional: No acute distress and Comfortable
EENT: Anicteric and Moist mucous membranes
Cardiovascular: Rhythm & rate is regular, Pedal edema is absent, JVD pressure is normal and Systolic murmur absent
Respiratory: Respiratory effort normal, Lungs clear to auscul., Wheeze Absent and Crackles Absent
GI: Soft, Distention absent, Non tender and Normal bowel sounds
Neuro/Psych: Alert, Oriented and AO x 3
Data Reviewed
-
Date of Service: July 07, 2024
Medical Decision Making: Reviewed Test Results, Test Interpretation and Review of Case with other Provider
EKG: Tracing Personally Visualized and interpreted
Echo: Report Reviewed by me
Labs: Labs Reviewed by me
Old Records: Reviewed
[2024-07-07] MEDS: CARDIZEM CD 180 MG PO (10:06)
--- NOTE | 2024-07-07 11:56 | PTCARENOTE ---
cardizem gtt stopped by cardiology HR 88 pt offers no complaints. CB in reach continue to monitor
[2024-07-07] MEDS: INDERAL 10 MG PO (17:30)
[2024-07-07] MEDS: SYMBICORT 160/4.5 MCG INHALER INH (19:10)
[2024-07-07] MEDS: DESYREL 50 MG PO (22:25)
[2024-07-08 03:48] VITALS: BP 135/73
[2024-07-08] MEDS: SYNTHROID 88 MCG PO (06:36)
[2024-07-08 07:10] VITALS: BP 106/70
[2024-07-08 08:02] LABS: Hematocrit 30.8 % (37.0-47.0); Hemoglobin 10.4 g/dL (12.0-16.0); Mean Corp Hgb Conc. 33.8 g/dL (33.0-37.0); Mean Corpuscular Hgb 32.5 pg (27.0-31.0); Mean Corpuscular Volume 96.3 fL (81.0-99.0); Mean Platelet Volume 10.5 fL (7.4-10.4); Platelet Count 206 10^3/uL (130-400); Red Cell Dist. Width 12.5 % (11.5-14.5); White Blood Cell Count 8.1 10^3/uL (4.8-10.8)
[2024-07-08] MEDS: SYMBICORT 160/4.5 MCG INHALER 2 PUFF INH (08:16)
[2024-07-08] MEDS: SPIRIVA RESPIMAT 2.5 MCG 2 PUFF INH (08:20)
[2024-07-08 08:33] LABS: Blood Urea Nitrogen 17 mg/dl (7-17); Calcium 8.5 mg/dl (8.4-10.2); Carbon Dioxide 33 mmol/L (22-30); Chloride 103 mmol/L (98-107); Estimated Creatinine Clearance 41 ml/min; Glucose 98 mg/dl (70-99); Potassium 4.2 mmol/L (3.5-5.1); Sodium 137 mmol/L (135-145); eGFR > 60.00
[2024-07-08] MEDS: CARDIZEM CD 180 MG PO (09:02)
[2024-07-08] MEDS: INDERAL 20 MG PO (09:02)
[2024-07-08 11:05] VITALS: BP 104/60
[2024-07-08 15:05] VITALS: BP 119/55; BP 139/63; PULSE 67; O2SAT 100
--- NOTE | 2024-07-08 15:09 | W.PN.CD ---
Addendum entered and electronically signed by Brent Salguero MD 07/08/24 17:17:
I saw and examined the patient.
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
Comment: Tolerating current low dose propranolol and new dilt ER. GI ok with Eliquis in 1 week. F/u arranged with our office.
Original Note:
Today's Communication / Plan
-
-continue diltiazem (rather than amlodipine)
-Eliquis 2.5 mg PO BID in one week (checking with CM to see if affordable)
Impression / Plan
-
Afib, paroxysmal:
-new diagnosis this admit
-continue
-[id number] score is 4 (female, age, HTN)
-recent bleed and plan is to wait for a week before starting Eliquis - Appropriate dose 2.5 mg BID (for wt and age)
-echo 05/07/2024 with EF 55-60%, mild MR.
-uses Propranolol for hyperthyroid and migraines as an outpatient.
-TSH is 3.01-nl
-remains in AFIB currently, but no symptoms- rate is controlled.
GIB - resolved
-Diverticular bleed: No active bleeding since colonoscopy done on 07/05 and hgb stable now.
-per GI, agree with wait a week until starting OAC
HTN - stable.
-transition from amlodipine to diltiazem. BP stable.
COPD - stable on inhalers, continue.
Migraines - stable on Propranolol, continue.
Physical Exam
Vital Signs/Labs
Vital Signs
Temp Pulse Resp BP Pulse Ox
97.6 F 74 12 104/60 98
07/08/24 11:05 07/08/24 11:05 07/08/24 11:05 07/08/24 11:05 07/08/24 11:05
07/08/24 07:05
07/08/24 07:05
PT 13.1 Sec (11.4-14.6) 07/01/24 10:27
INR 0.96 07/01/24 10:27
APTT 30.3 Sec (23.4-35.0) 07/01/24 10:27
Magnesium 2.0 mg/dl (1.6-2.3) 07/08/24 07:05
LAB Results
07/05/24 07/05/24
16:21 20:06
Troponin I 0.040 H* 0.039 H*
Physical Exam
Constitutional: No acute distress
EENT: Anicteric
Cardiovascular: Rhythm/rate is irregular
Respiratory: Respiratory effort normal and Lungs clear to auscul.
Neuro/Psych: AO x 3
Other: Skin (warm and dry)
Data Reviewed
-
Date of Service: July 08, 2024
EKG: Other (AFIB, rate currently controlled. No long pauses noted.)
--- NOTE | 2024-07-08 15:11 | W.PN.HOSP.TC ---
Today's Communication/Plan
-
Heart rate better after mild tachycardia this morning, after which patient received her beta harleen and CCB
Cardiology will see today
Possible discharge today
Assessment / Plan
Assessment / Plan
Physical Exam
General: No Apparent Distress
HEENT: Normocephalic and Atraumatic
Respiratory: Negative Wheezes
Cardiac: iregular Rhythm, and S1/S2
GI: Soft and Nontender. Positive bowel sounds.
Neuro: AAO x 3
Psych: Calm
Assessment/Plan
Acute lower GI bleed, with acute blood loss anemia
Diverticulosis in the sigmoid colon and in the descending colon - multiple large diverticula holding on to lots of old blood clots
Old blood in the sigmoid colon
- Colonoscopy on 07/05/24 -- results are above and in business control specialist's report
- likely diverticular in origin
- s/p admission CTA with + GI bleed in descending colon. s/p negative IR angiogram
- GI following
- CTA 07/04/24 without any acute bleeding. Does show diverticuli.
- Monitor Hgb and for clinical bleeding
- If significant rebleeding will need IR versus surgical treatment for diverticular bleed.
- Continue low residue diet, monitor hgb, nightly Miralax to get old clots out
- Fiber as an outpatient
- Hgb drop this morning, monitor for 1 more day, and if stable going into tomorrow, then can discharge patient
New onset atrial fibrillation with RVR - new onset 07/05/24 morning with RVR - symptomatic with palpitations with rapid rates.
Cardiology following
Cardizem Bolus given and Cardizem Drip restarted on 07/07/24 due to RVR 120-140's bpm with activity and 105-118 bpm at rest
Cardizem Cd 180 mg daily started on 07/07/24
Recent echo with normal EF, no need to repeat
Patient uses Propranolol for thyroid disease per patient -- resumed home Propranolol -- okay to resume this as per cardiology, discussed with Dr. Alejo on 07/07/24
Anticoagulation per cardiology: in 1 week, start Eliquis 2.5 mg BID; if recurrent bleeding noted, can consider Watchman Device.
Mild troponin elevation, likely nonischemic myocardial injury secondary to A-fib
Continue to monitor
Essential Hypertension
- Hold amlodipine in setting of active bleed
- Likely stop Amlodipine in favor of Diltiazem for Afib at discharge.
COPD, no acute exacerbation
- continue Trelegy
Hypothyroidism
- continue levothyroxine
Check TSH with reflex
Migraine Headaches
-Hold propranolol for prophylaxis
Insomnia
- continue trazodone
DVT proph: SCDs due to GI bleed
Code Status: DNR/DNI confirmed with patient
Anticipated Discharge: Today
Subjective/Interval History
-
Date of Service: July 08, 2024
Patient was seen and examined. She denied any chest pain, SOB, dizziness or any other complaints.
Objective Data
-
Labs:
Laboratory Results
07/08/24
07:05
WBC 8.1
Hgb 10.4 L
Hct 30.8 L
Plt Count 206
Sodium 137
Potassium 4.2
Chloride 103
Carbon Dioxide 33 H
BUN 17
Creatinine 0.7
Glucose 98
Calcium 8.5
Vital Signs:
Vital Signs
Temp Pulse Resp BP Pulse Ox
97.6 F 74 12 104/60 98
07/08/24 11:05 07/08/24 11:05 07/08/24 11:05 07/08/24 11:05 07/08/24 11:05
I&O
07/07/24 07/08/24 07/09/24
06:59 06:59 06:59
Intake Total 1317 / 1317 780 / 780
Balance 1316 131 /
[2024-07-08 16:00] VITALS: BP 100/60
--- NOTE | 2024-07-08 16:15 | CM ---
CM me with Kadi at bedside to discuss possible discharge to home today. She is looking forward to going home to her own house. Kadi was seen by therapy and is (I) amb and adls per their evaluation today.
IMM signed and copy provided to Kadi.
Plan: Discharge to home with no needs.
[2024-07-08] MEDS: INDERAL 10 MG PO (17:27)
== END 2024-07-08 19:01 | disposition home or self-care (01) | DRG 378 ==
LOC: 4 EAST ACU 15:14
PROVIDERS: Emergency Medicine; Internal Medicine; Internal Medicine Gastroenterology; Nurse Practitioner Family; Physician Assistant Medical; Radiology Vascular & Interventional Radiology; ADMITTING PHYSICIAN Internal Medicine; ATTENDING PHYSICIAN Hospitalist; CONSULT PHYSICIAN Internal Medicine; EMERGENCY PHYSICIAN Student in an Organized Health Care Education/Training Program; FAMILY PHYSICIAN Internal Medicine; OTHER PHYSICIAN Internal Medicine Cardiovascular Disease
PROC: B41F1ZZ Fluoroscopy of Right Lower Extremity Arteries using Low Osmolar Contrast (ICD-10-PCS; 2024-07-01)
PROC: B4141ZZ Fluoroscopy of Superior Mesenteric Artery using Low Osmolar Contrast (ICD-10-PCS; 2024-07-01)
PROC: B4151ZZ Fluoroscopy of Inferior Mesenteric Artery using Low Osmolar Contrast (ICD-10-PCS; 2024-07-01)
PROC: 0DJD8ZZ Inspection of Lower Intestinal Tract, Via Natural or Artificial Opening Endoscopic (ICD-10-PCS; 2024-07-05)
DX: K57.31 Diverticulosis of large intestine without perforation or abscess with bleeding (principal); D62 Acute posthemorrhagic anemia; I5A Non-ischemic myocardial injury (non-traumatic); Z66 Do not resuscitate; J44.9 Chronic obstructive pulmonary disease, unspecified; I10 Essential (primary) hypertension; G43.909 Migraine, unspecified, not intractable, without status migrainosus; E03.9 Hypothyroidism, unspecified; G47.00 Insomnia, unspecified; Z87.891 Personal history of nicotine dependence; Z88.2 Allergy status to sulfonamides; Z79.890 Hormone replacement therapy; K59.09 Other constipation; Z86.0100 Personal history of colon polyps, unspecified; Z90.710 Acquired absence of both cervix and uterus; Z79.899 Other long term (current) drug therapy; I45.10 Unspecified right bundle-branch block; I48.91 Unspecified atrial fibrillation; Z80.0 Family history of malignant neoplasm of digestive organs
CPT/HCPCS: 36245; 74174; 75726; 76937; 80048; 80053; 83735; 84443; 84484; 85014; 85018; 85025; 85027; 85610; 85730; 86850; 86900; 86901; 87045; 87046; 87427; 93005; 94640; 97116; 97161; 99152; 99153; 99291; C1769; Q9967

== ENCOUNTER → 2024-07-11 12:10 | Outpatient (REF) | payer MEDICARE, OTHER, SELFPAY ==
[2024-07-11 16:07] LABS: Blood Urea Nitrogen 20 mg/dl (7-17); Calcium 8.7 mg/dl (8.4-10.2); Carbon Dioxide 27 mmol/L (22-30); Chloride 99 mmol/L (98-107); Glucose 131 mg/dl (70-99); Magnesium 2.2 mg/dl (1.6-2.3); Sodium 134 mmol/L (135-145); eGFR > 60.00
[2024-07-11 16:25] LABS: % Basophils 0.8 % (0-2); % Eosinophils 1.5 % (0-6); % Immature Granulocytes 0.4 % (0-0.5); % Lymphocytes 17.6 % (20.5-51.1); % Monocytes 9.4 % (1.7-9.3); % Neutrophils 70.3 % (42.2-75.2); Absolute Basophils 0.1 10^3/uL (0-0.2); Absolute Eosinophils 0.1 10^3/uL (0-0.7); Absolute Lymphocytes 1.3 10^3/uL (1.2-3.4); Absolute Monocytes 0.7 10^3/uL (0.1-0.6); Absolute Neutrophils 5.2 10^3/uL (1.4-6.5); Hematocrit 31.3 % (37.0-47.0); Hemoglobin 10.4 g/dL (12.0-16.0); Mean Corp Hgb Conc. 33.2 g/dL (33.0-37.0); Mean Corpuscular Hgb 32.4 pg (27.0-31.0); Mean Corpuscular Volume 97.5 fL (81.0-99.0); Mean Platelet Volume 11.1 fL (7.4-10.4); Nucleated Red Blood Cells % 0 %; Platelet Count 234 10^3/uL (130-400); Red Blood Cell Count 3.21 10^6/uL (4.20-5.40); White Blood Cell Count 7.4 10^3/uL (4.8-10.8)
== END ==
LOC: HWLAB 12:10
PROVIDERS: ATTENDING PHYSICIAN Internal Medicine
DX: K92.2 Gastrointestinal hemorrhage, unspecified (principal); I48.91 Unspecified atrial fibrillation; I5A Non-ischemic myocardial injury (non-traumatic); K57.31 Diverticulosis of large intestine without perforation or abscess with bleeding
CPT/HCPCS: 36415; 80048; 83735; 85025

== ENCOUNTER → 2024-08-08 12:47 | Outpatient (REF) | payer MEDICARE, OTHER, SELFPAY ==
[2024-08-08 15:27] LABS: Hematocrit 38.5 % (37.0-47.0); Hemoglobin 12.5 g/dL (12.0-16.0); Mean Corp Hgb Conc. 32.5 g/dL (33.0-37.0); Mean Corpuscular Hgb 32.1 pg (27.0-31.0); Mean Platelet Volume 10.6 fL (7.4-10.4); Platelet Count 210 10^3/uL (130-400); Red Blood Cell Count 3.89 10^6/uL (4.20-5.40); Red Cell Dist. Width 12.8 % (11.5-14.5); White Blood Cell Count 5.5 10^3/uL (4.8-10.8)
== END ==
LOC: HWLAB 12:47
PROVIDERS: ATTENDING PHYSICIAN Specialist; FAMILY PHYSICIAN Internal Medicine
DX: K57.31 Diverticulosis of large intestine without perforation or abscess with bleeding (principal)
CPT/HCPCS: 36415; 85027

== ENCOUNTER → 2024-08-30 11:48 | Outpatient (REF) | payer MEDICARE, OTHER, SELFPAY ==
[2024-08-30 15:42] LABS: % Basophils 0.9 % (0-2); % Eosinophils 2.4 % (0-6); % Immature Granulocytes 0.4 % (0-0.5); % Lymphocytes 23.5 % (20.5-51.1); % Monocytes 7.5 % (1.7-9.3); % Neutrophils 65.3 % (42.2-75.2); Absolute Basophils 0.1 10^3/uL (0-0.2); Absolute Eosinophils 0.1 10^3/uL (0-0.7); Absolute Lymphocytes 1.3 10^3/uL (1.2-3.4); Absolute Monocytes 0.4 10^3/uL (0.1-0.6); Absolute Neutrophils 3.6 10^3/uL (1.4-6.5); Hematocrit 40.6 % (37.0-47.0); Hemoglobin 13.4 g/dL (12.0-16.0); Mean Corpuscular Hgb 31.9 pg (27.0-31.0); Mean Corpuscular Volume 96.7 fL (81.0-99.0); Mean Platelet Volume 10.9 fL (7.4-10.4); Nucleated Red Blood Cells % 0 %; Platelet Count 194 10^3/uL (130-400); Red Cell Dist. Width 12.5 % (11.5-14.5); Reticulocyte Count 1.7 % (0.4-2.8); White Blood Cell Count 5.5 10^3/uL (4.8-10.8)
[2024-08-30 16:21] LABS: Iron 97 ug/dl (37-170)
[2024-08-30 16:31] LABS: Percent Saturation 32 % (20-50); Total Iron Binding Capacity 297 ug/dl (265-497)
[2024-08-30 16:52] LABS: Ferritin 16.2 ng/ml (11.1-264.0)
== END ==
LOC: HWLAB 11:48
PROVIDERS: ATTENDING PHYSICIAN Internal Medicine
DX: Z87.19 Personal history of other diseases of the digestive system (principal); D64.9 Anemia, unspecified
CPT/HCPCS: 36415; 82728; 83540; 83550; 85025; 85045

== ENCOUNTER → 2024-10-11 15:34 | Outpatient (REF) | payer MEDICARE, OTHER, SELFPAY | LOC: RAD 15:34 | PROVIDERS: FAMILY PHYSICIAN Internal Medicine | DX: R60.0 Localized edema (principal) | CPT/HCPCS: 93971 ==

== ENCOUNTER → 2024-10-23 13:06 | Outpatient (REF) | payer MEDICARE, OTHER, SELFPAY ==
[2024-10-23 17:44] LABS: Blood Urea Nitrogen 21 mg/dl (7-17); Calcium 9.1 mg/dl (8.4-10.2); Carbon Dioxide 33 mmol/L (22-30); Chloride 103 mmol/L (98-107); Glucose 174 mg/dl (70-99); Potassium 3.9 mmol/L (3.5-5.1); Sodium 140 mmol/L (135-145); eGFR > 60.00
== END ==
LOC: HWLAB 13:06
DX: R60.0 Localized edema (principal)
CPT/HCPCS: 36415; 80048

== ENCOUNTER → 2024-11-22 11:04 | Outpatient (REF) | payer MEDICARE, OTHER, SELFPAY ==
[2024-11-22 16:34] LABS: % Basophils 1.1 % (0-2); % Eosinophils 2.3 % (0-6); % Immature Granulocytes 0.4 % (0-0.5); % Lymphocytes 23.7 % (20.5-51.1); % Monocytes 7.4 % (1.7-9.3); % Neutrophils 65.1 % (42.2-75.2); Absolute Basophils 0.1 10^3/uL (0-0.2); Absolute Eosinophils 0.1 10^3/uL (0-0.7); Absolute Lymphocytes 1.4 10^3/uL (1.2-3.4); Absolute Monocytes 0.4 10^3/uL (0.1-0.6); Absolute Neutrophils 3.7 10^3/uL (1.4-6.5); Hematocrit 45.7 % (37.0-47.0); Hemoglobin 15.4 g/dL (12.0-16.0); Mean Corp Hgb Conc. 33.7 g/dL (33.0-37.0); Mean Corpuscular Hgb 31.7 pg (27.0-31.0); Mean Platelet Volume 11.3 fL (7.4-10.4); Nucleated Red Blood Cells % 0 %; Platelet Count 193 10^3/uL (130-400); Red Blood Cell Count 4.86 10^6/uL (4.20-5.40); Red Cell Dist. Width 13.2 % (11.5-14.5); White Blood Cell Count 5.7 10^3/uL (4.8-10.8)
[2024-11-22 16:37] LABS: ALT (SGPT) 23 U/L (0-35); AST (SGOT) 23 U/L (14-36); Alkaline Phosphatase 82 U/L (38-126); Blood Urea Nitrogen 20 mg/dl (7-17); Calcium 9.4 mg/dl (8.4-10.2); Carbon Dioxide 30 mmol/L (22-30); Chloride 103 mmol/L (98-107); Glucose 128 mg/dl (70-99); Potassium 4.2 mmol/L (3.5-5.1); Sodium 139 mmol/L (135-145); Total Bilirubin 0.8 mg/dl (0.2-1.3); Total Protein 6.5 g/dl (6.3-8.2); eGFR > 60.00
[2024-11-22 16:49] LABS: NT-proBNP 811 pg/ml
== END ==
LOC: HWLAB 11:04
PROVIDERS: ATTENDING PHYSICIAN Nurse Practitioner; FAMILY PHYSICIAN Internal Medicine
DX: R60.0 Localized edema (principal); R06.09 Other forms of dyspnea
CPT/HCPCS: 36415; 80053; 83880; 85025

== ENCOUNTER → 2024-12-06 12:54 | Outpatient (REF) | payer MEDICARE, OTHER, SELFPAY | LOC: RCS 12:54 | PROVIDERS: ATTENDING PHYSICIAN Nurse Practitioner; FAMILY PHYSICIAN Internal Medicine | DX: R60.0 Localized edema (principal); R06.09 Other forms of dyspnea; I34.0 Nonrheumatic mitral (valve) insufficiency | CPT/HCPCS: 93306 ==

== ENCOUNTER → 2025-01-09 10:28 | Outpatient (REF) | payer MEDICARE, OTHER, SELFPAY ==
[2025-01-09 11:20] LABS: Hematocrit 43.3 % (37.0-47.0); Hemoglobin 14.7 g/dL (12.0-16.0); Mean Corp Hgb Conc. 33.9 g/dL (33.0-37.0); Mean Corpuscular Volume 95.0 fL (81.0-99.0); Nucleated Red Blood Cells % 0 %; Platelet Count 176 10^3/uL (130-400); Red Cell Dist. Width 13.4 % (11.5-14.5)
[2025-01-09 11:57] LABS: ALT (SGPT) 26 U/L (0-35); AST (SGOT) 26 U/L (14-36); Albumin 3.9 g/dl (3.5-5.0); Alkaline Phosphatase 89 U/L (38-126); Blood Urea Nitrogen 17 mg/dl (7-17); Calcium 9.0 mg/dl (8.4-10.2); Carbon Dioxide 29 mmol/L (22-30); Chloride 102 mmol/L (98-107); Glucose 122 mg/dl (70-99); Lipase 127 U/L (23-300); Potassium 4.2 mmol/L (3.5-5.1); Sodium 135 mmol/L (135-145); Total Protein 6.4 g/dl (6.3-8.2); eGFR > 60.00
[2025-01-09 13:31] LABS: Amylase 65 U/L (30-110)
== END ==
LOC: HWLAB 10:28
PROVIDERS: ATTENDING PHYSICIAN Internal Medicine
DX: R53.83 Other fatigue (principal); R10.30 Lower abdominal pain, unspecified
CPT/HCPCS: 80053; 82150; 83690; 84443; 85025

== ENCOUNTER → 2025-01-19 11:13 | Outpatient (REF) | payer MEDICARE, OTHER, SELFPAY | LOC: PAVMRI 11:13 | PROVIDERS: ATTENDING PHYSICIAN Internal Medicine | DX: R51.9 Headache, unspecified (principal); Z79.01 Long term (current) use of anticoagulants | CPT/HCPCS: 70551 ==

== ENCOUNTER → 2025-02-04 12:00 | Outpatient (REF) | payer MEDICARE, OTHER, SELFPAY | LOC: RAD 12:00 | PROVIDERS: ATTENDING PHYSICIAN Internal Medicine | DX: R10.30 Lower abdominal pain, unspecified (principal) | CPT/HCPCS: 74177; Q9967 ==

== ENCOUNTER → 2025-05-14 12:19 | Outpatient (REF) | payer MEDICARE, OTHER, SELFPAY | LOC: RAD 12:19 | PROVIDERS: ATTENDING PHYSICIAN Internal Medicine | DX: R91.8 Other nonspecific abnormal finding of lung field (principal) | CPT/HCPCS: 71046 ==